=== PATIENT | male | born 1960 | race Caucasian/White ===

== ENCOUNTER 2018-01-31 10:30 | Inpatient (IN) | payer SELFPAY ==
[2018-01-31 10:30] VITALS: BMI 29.0
[2018-01-31] MEDS ORDERED: Sodium Chloride 0.9% 1,000 ML IV ONE ×3 (10:46→13:43)
[2018-01-31 11:06] LABS: BASO # 0.1 K/uL (0.0-0.2); BASO % 1.7 % (0.0-2.0); EOS % 0.1 % (0.0-4.0); LYMPH # 0.6 K/uL (1.0-4.3); LYMPH % 7.3 % (20.0-40.0); MEAN CELL VOLUME 88.8 fL (80.0-94.0); MEAN CORPUSCULAR HEMOGLOBIN 33.1 pg (27.0-31.0); MEAN CORPUSCULAR HGB CONC 37.3 g/dL (33.0-37.0); MEAN PLATELET VOLUME 7.1 fL (7.2-11.7); MONO # 0.9 K/uL (0.0-0.8); MONO % 10.8 % (0.0-10.0); NEUT # 6.6 K/uL (1.8-7.0); NEUT % 80.1 % (50.0-75.0); PLATELET COUNT 216 K/uL (130-400); RBC 4.22 Mil/uL (4.40-5.90); RED CELL DISTRIBUTION WIDTH 14.7 % (11.5-14.5); WHITE BLOOD COUNT 8.3 K/uL (4.8-10.8)
[2018-01-31 11:14] LABS: INR 1.3; PROTHROMBIN TIME 14.1 SECONDS (9.7-12.2)
[2018-01-31 11:18] LABS: VENOUS BLOOD GAS BASE EXCESS -7.4 mmol/L (0.0-2.0); VENOUS BLOOD GAS PCO2 58 mmHg (40-60); VENOUS BLOOD GAS PO2 51 mm/Hg (30-55); VENOUS BLOOD PH 7.18 (7.32-7.43)
[2018-01-31 11:20] LABS: URINE BILIRUBIN NEGATIVE (NEGATIVE); URINE BLOOD 1+ (NEGATIVE); URINE CLARITY Clear (Clear); URINE COLOR Yellow (YELLOW); URINE GLUCOSE (UA) 1+ mg/dL (Normal); URINE LEUKOCYTE ESTERASE NEG Leu/uL (Negative); URINE PROTEIN 1+ mg/dL (NEGATIVE)
[2018-01-31 11:28] LABS: BARBITURATES, UR NEGATIVE (NEGATIVE); BENZODIAZEPINES, UR NEGATIVE (NEGATIVE); OPIATES, UR NEGATIVE (NEGATIVE); PHENCYCLIDINE, UR NEGATIVE (NEGATIVE)
[2018-01-31 11:33] LABS: CK-MB 5.31 ng/mL (0.0-3.38)
[2018-01-31] MEDS ORDERED: Sodium Chloride 0.9% 500 ML IV ONE (11:37)
[2018-01-31 11:38] LABS: ALB/GLOB RATIO 1.7 (1.0-2.1); ALBUMIN 4.6 g/dL (3.5-5.0); ALT/SGPT 75 U/L (21-72); AST/SGOT 94 U/L (17-59); BLOOD UREA NITROGEN 16 mg/dL (9-20); CALCIUM 8.5 mg/dl (8.6-10.4); GFR AFRICAN-AMERICAN > 60; GFR NON-AFRICAN AMERICAN > 60
[2018-01-31] MEDS ORDERED: Sodium Chloride 0.9% 1,000 ML ONE (11:40)
[2018-01-31] MEDS ORDERED: Potassium Chloride 20 mEq 100 ML ONE (11:46)
--- NOTE | 2018-01-31 11:48 | C.PDOC ---
History Of Present Illness Patient LOBO from work, was found by a coworker on the floor of their job appearing altered/confused. Patient asking for water, but otherwise is confused and unable to provide much information. Time Seen by Provider: 01/31/18 10:45 Chief Complaint (Nursing): Altered Mental Status History Per: EMS History/Exam Limitations: Clinical Condition Onset Of Symptoms: Other ([employer]) Past Medical History Reviewed: Historical Data, Nursing Documentation, Vital Signs Vital Signs: Last Vital Signs Temp 98.0 F 02/03/18 16:00 Pulse 71 02/03/18 12:00 Resp 17 02/03/18 12:00 BP 145/95 H 02/03/18 12:00 Pulse Ox 99 02/04/18 12:46 - Medical History PMH: HTN Family History: States: Unknown Family Hx - Social History Hx Alcohol Use: Yes Hx Substance Use: No Review Of Systems Review Of Systems: ROS cannot be obtained secondary to pt's inabilty to answer questions. Physical Exam - Physical Exam Appears: Non-toxic, Confused Skin: Normal Color, Warm, Dry Head: Atraumatic, Normacephalic Eye(s): bilateral: Normal Inspection Cardiovascular: Rhythm Regular Respiratory: Normal Breath Sounds, No Rales, No Rhonchi, No Wheezing Gastrointestinal/Abdominal: Normal Exam, Bowel Sounds, Soft, No Tenderness Neurological/Psych: No Oriented x3 (awake, alert but confused ), No Normal Cognition, Normal Cranial Nerves, No Cerebellar Signs, Normal Motor, Normal Sensation ED Course And Treatment - Laboratory Results Result Diagrams: 02/03/18 06:24 02/03/18 06:14 ECG: Interpreted By Me, Viewed By Me (sinus rhythm 94 bpm, first degree AV block , PVCs, left axis deviation, T wave inversions III, aVF, no acute ST changes) ECG Interpretation: Abnormal O2 Sat by Pulse Oximetry: 99 (RA) Pulse Ox Interpretation: Normal - Radiology CXR: Interpreted by Me, Viewed By Me CXR Interpretation: Yes: No Acute Disease, Other (no effusions). No: Infiltrates - CT Scan/US CT HEAD Other Rad Studies (CT/US): Read By Radiologist, Radiology Report Reviewed CT/US Interpretation: Accession No. : [id number]. Patient Name / ID : KASSIE GURROLA / [id number]. Exam Date : 01/31/2018 11:31:47 ( Approved ). Study Comment : Sex / Age : M / 57Y. Creator : Randall Forbes MD. Dictator : Randall Forbes MD. Legal Billing Analyst : [employer] Maker : Randall Forbes MD. Approver2 : Report Date : 01/31/2018 11:52:47. My Comment : . PROCEDURE: CT HEAD WITHOUT CONTRAST. HISTORY: ams. COMPARISON: None available. TECHNIQUE: Axial computed tomography images were obtained through the head/brain without intravenous contrast. Radiation dose: Total exam DLP = 991.53 mGy-cm. This CT exam was performed using one or more of the following dose reduction techniques: Automated exposure control, adjustment of the mA and/ or kV according to patient size, and/or use of iterative reconstruction technique. FINDINGS: HEMORRHAGE: No intracranial hemorrhage. BRAIN: No mass effect or edema. Mild diffuse atrophy. No chronic white matter ischemic change. No evidence of acute infarct. VENTRICLES: Unremarkable. No hydrocephalus. CALVARIUM: Unremarkable. PARANASAL SINUSES: Unremarkable as visualized. No significant inflammatory changes. MASTOID AIR CELLS: Unremarkable as visualized. No inflammatory changes. OTHER FINDINGS: None. IMPRESSION: Mild diffuse atrophy. No evidence of intracranial mass, hemorrhage or acute infarct. Progress Note: Blood work, UA, UDS, CXR, EKG, CT head ordered and reviewed. Discussed patient with Dr. Elliott berumen (director of automation), recommends repeat CMP in 1hr after arrival to reassess NA level. Recommends again giving hypertonic saline at this time . 11:30am- Patient evaluated by Dr. Berumen - Repeat CMP ordered. icu VS tele admission dependent on results of repeat CMP. 1:20pm- Discussed patient with Dr. Leon Berumen, agrees with admission to his service, likely will be ICU. Requests stat consult with nephrology Dr. Pérez. 1:30pm- Discussed patient with service consultant nephrology Dr. Shetty, recommends 3% saline 100ml IV bolus now. CMP repeat pending. 1:38pm - Repeat Na is 112- Spoke with director of automation, recommends against hypertonic saline at this time, would like normal saline only. IV NS increased to 100ml per hour. Will admit to ICU for symptomatic hyponatremia. Dr Pérez notified and will discuss with director of automation. - Physician Consult Information Outcome Of Conversation: Patient admitted to ICU under hospitalist service for symptomatic hyponatremia, AMS, hypokalemia. Critical Care Time - Critical Care Note Total Time (in mins): 60 Documented critical care: time excludes all time spent performing seperately billable procedures. Disposition - Disposition Disposition: HOSPITALIZED Disposition Time: 13:37 Condition: GUARDED - Clinical Impression Clinical Impression: Acute hyponatremia, Altered mental status, Hypokalemia Decision To Admit - Pt Status Changed To: Hospital Disposition Of: Inpatient - Admit Certification Admit to Inpatient:: After my assessment, the patient will require hospitalization for at least two midnights. This is because of the severity of symptoms shown, intensity of services needed, and/or the medical risk in this patient being treated as an outpatient. - InPatient: Physician Admission Certification:: see notes - . Bed Request Type: ICU Admitting Physician: Darrell Berumen Patient Diagnosis: Acute hyponatremia, Altered mental status, Hypokalemia
--- NOTE | 2018-01-31 11:54 | CT ---
PROCEDURE: CT HEAD WITHOUT CONTRAST. HISTORY: ams COMPARISON: None available. TECHNIQUE: Axial computed tomography images were obtained through the head/brain without intravenous contrast. Radiation dose: Total exam DLP = 991.53 mGy-cm. This CT exam was performed using one or more of the following dose reduction techniques: Automated exposure control, adjustment of the mA and/or kV according to patient size, and/or use of iterative reconstruction technique. FINDINGS: HEMORRHAGE: No intracranial hemorrhage. BRAIN: No mass effect or edema. Mild diffuse atrophy. No chronic white matter ischemic change. No evidence of acute infarct. VENTRICLES: Unremarkable. No hydrocephalus. CALVARIUM: Unremarkable. PARANASAL SINUSES: Unremarkable as visualized. No significant inflammatory changes. MASTOID AIR CELLS: Unremarkable as visualized. No inflammatory changes. OTHER FINDINGS: None. IMPRESSION: Mild diffuse atrophy. No evidence of intracranial mass, hemorrhage or acute infarct.
[2018-01-31 12:04] LABS: LYMPHOCYTE 4 % (20-40); MONOCYTE 6 % (0-10); NEUTROPHIL 90 % (50-75); PLATELET ESTIMATE NORMAL (NORMAL); TOTAL CELLS COUNTED 100
[2018-01-31 12:14] LABS: B-TYPE NATRIURETIC PEPTIDE 176 pg/mL (0-900)
[2018-01-31] MEDS ORDERED: Labetalol 25mg/5ml Syringe IVP STA (12:33)
--- NOTE | 2018-01-31 13:35 | RAD ---
PROCEDURE: CHEST RADIOGRAPH, 1 VIEW HISTORY: SOB COMPARISON: None available. FINDINGS: LUNGS: Clear. PLEURA: No pneumothorax or pleural fluid seen. CARDIOVASCULAR: Normal. OSSEOUS STRUCTURES: No significant abnormalities. VISUALIZED UPPER ABDOMEN: Normal. OTHER FINDINGS: None. IMPRESSION: No active disease.
[2018-01-31 13:40] LABS: ALB/GLOB RATIO 1.6 (1.0-2.1); ALBUMIN 4.5 g/dL (3.5-5.0); ALT/SGPT 72 U/L (21-72); AST/SGOT 78 U/L (17-59); BLOOD UREA NITROGEN 15 mg/dL (9-20); CALCIUM 8.7 mg/dl (8.6-10.4); GFR AFRICAN-AMERICAN > 60; GFR NON-AFRICAN AMERICAN > 60
[2018-01-31] MEDS ORDERED: Labetalol 25mg/5ml Syringe ONE (13:40)
--- NOTE | 2018-01-31 16:11 | CP.PCM.HP ---
<Isac Adams - Last Filed: 01/31/18 18:09> History of Present Illness - History of Present Illness History of Present Illness: 57 year old male with past medical history of hypertension, and diabetes was brought in by ambulance because he was found confused at work. Patient is and confused at the time of interview. Patient states woke up this morning feeling fine and went on about his day until he got to where he started feeling "uncomfortable" prior loss of consciousness. He insisted that does not do drugs and someone must have poisoned him. Currently he complains of being thirsty and urge to urinate. He denies prior history of the same. He denies taking any medications this morning and his last alcohol intake was last night. He had 5 cans of beers. Patient further denies having fever, chills, headache, blurred vision, shortness of breath, chest pain, nausea, vomiting, diarrhea, or abdominal pain. Patient became agitated when asked about his family, relatives, or currently living situation. PMD: Dr. Bhatt, last seen ?months when he lost his insurance PMHx: HTN, DM2, dyslipidemia PSHx: Lipoma excision x3 Allergy: NKDA social history: drinks 5-10 cans of beer every weekend, denies tobacco use. History of cocaine use, last use was 20years ago. Works as a manager report. Lives alone "at work" Family Hx: adopted, unknown Home meds: cozaar 100mg, atenolol 100mg, glipezide 10mg, HCTZ 25mg, amlodipine 10mg, gemfibrozil 600mg [facility]acy: [facility] Present on Admission - Present on Admission Any Indicators Present on Admission: No Review of Systems - Review of Systems Systems not reviewed;Unavailable: Altered Mental Status All systems: reviewed and no additional remarkable complaints except - Constitutional Constitutional: As Per HPI. absent: Chills, Excessive Sweating, Fever, Headache - EENT Eyes: As Per HPI. absent: Blind Spots, Blurred Vision, Change in Vision Ears: As Per HPI. absent: Disequilibrium, Dizziness Nose/Mouth/Throat: As Per HPI. absent: Epistaxis, Nasal Trauma, Nose Pain - Cardiovascular Cardiovascular: As Per HPI. absent: Chest Pain, Dyspnea, Edema, Leg Edema, Syncope - Respiratory Respiratory: As Per HPI. absent: Cough, Dyspnea - Gastrointestinal Gastrointestinal: As Per HPI. absent: Abdominal Pain, Bloating, Diarrhea, Nausea, Vomiting - Genitourinary Genitourinary: As Per HPI. absent: Dysuria, Flank Pain, Hematuria - Reproductive: Male Reproductive:Male: As Per HPI - Musculoskeletal Musculoskeletal: As Per HPI. absent: Deformity, Joint Swelling, Tingling - Integumentary Integumentary: As Per HPI. absent: Alopecia, Change in Hair, Change in Pigmentation - Neurological Neurological: As Per HPI. absent: Dizziness, Numbness, Headaches, Tremor, Weakness - Psychiatric Psychiatric: As Per HPI, Confusion. absent: Auditory Hallucinations, Depression - Endocrine Endocrine: As Per HPI, Polyuria. absent: Change in Body Appearance, Cold Intolorance, Heat Intolorance, Palpitations Additional Comments: Thirsty - Hematologic/Lymphatic Hematologic: As Per HPI. absent: Easy Bleeding Past Patient History - Infectious Disease Hx of Infectious Diseases: None - Past Social History Smoking Status: Never Smoked - CARDIAC Hx Hypertension: Yes - PULMONARY Hx Respiratory Disorders: No - NEUROLOGICAL Hx Neurological Disorder: No - HEENT Hx HEENT Problems: No - RENAL Hx Chronic Kidney Disease: No - ENDOCRINE/METABOLIC Hx Endocrine Disorders: No - HEMATOLOGICAL/ONCOLOGICAL Hx Blood Disorders: No - INTEGUMENTARY Hx Dermatological Problems: No - MUSCULOSKELETAL/RHEUMATOLOGICAL Hx Gout: Yes - GASTROINTESTINAL Hx Gastrointestinal Disorders: No - GENITOURINARY/GYNECOLOGICAL Hx Genitourinary Disorders: No - PSYCHIATRIC Hx Substance Use: No - SURGICAL HISTORY Hx Surgeries: No - ANESTHESIA Hx Anesthesia: No Meds Allergies/Adverse Reactions: Allergies Allergy/AdvReac Type Severity Reaction Status Date / Time No Known Allergies Allergy Verified 10/31/17 16:45 Physical Exam - Constitutional Appears: Non-toxic, No Acute Distress, Confused - Head Exam Head Exam: ATRAUMATIC, NORMOCEPHALIC - Eye Exam Eye Exam: EOMI, Normal appearance Pupil Exam: NORMAL ACCOMODATION - ENT Exam ENT Exam: Mucous Membranes Moist - Neck Exam Neck exam: Positive for: Normal Inspection. Negative for: Tenderness, Thyromegaly - Respiratory Exam Respiratory Exam: Clear to Auscultation Bilateral, NORMAL BREATHING PATTERN. absent: Wheezes, Respiratory Distress - Cardiovascular Exam Cardiovascular Exam: REGULAR RHYTHM, +S1, +S2. absent: Diastolic murmur, Systolic Murmur - GI/Abdominal Exam GI & Abdominal Exam: Normal Bowel Sounds, Soft. absent: Tenderness - Extremities Exam Extremities exam: Positive for: normal capillary refill, normal inspection, pedal pulses present. Negative for: joint swelling, pedal edema, tenderness - Back Exam Back exam: absent: CVA tenderness (L), CVA tenderness (R) Additional comments: lipoma excision scars right upper back, bilateral lower back - Neurological Exam Neurological exam: Alert, Altered, CN II-XII Intact, Motor Sensory Deficit Additional comments: 1+ bilateral knee jerk reflex - Psychiatric Exam Psychiatric exam: Normal Affect, Normal Mood - Skin Skin Exam: Dry, Normal Color, Warm Results - Vital Signs Recent Vital Signs: Last Vital Signs Temp 98.2 F 01/31/18 14:09 Pulse 82 01/31/18 15:00 Resp 15 01/31/18 15:00 BP 168/98 H 01/31/18 14:52 Pulse Ox 100 01/31/18 15:00 - Labs Result Diagrams: 01/31/18 10:54 01/31/18 13:01 Labs: Laboratory Results - last 24 hr 01/31/18 01/31/18 01/31/18 10:37 10:54 10:54 WBC 8.3 RBC 4.22 L Hgb 14.0 Hct 37.5 MCV 88.8 MCH 33.1 H MCHC 37.3 H RDW 14.7 H Plt Count 216 MPV 7.1 L Neut % (Auto) 80.1 H Lymph % (Auto) 7.3 L [place] % (Auto) 10.8 H Eos % (Auto) 0.1 Baso % (Auto) 1.7 Neut # (Auto) 6.6 Lymph # (Auto) 0.6 L [place] # (Auto) 0.9 H Eos # (Auto) 0.0 Baso # (Auto) 0.1 Neutrophils % (Manual) 90 H Lymphocytes % (Manual) 4 L Monocytes % (Manual) 6 Platelet Estimate Normal RBC Morphology Normal PT 14.1 H INR 1.3 APTT 29 pO2 VBG pH VBG pCO2 VBG HCO3 VBG Total CO2 VBG O2 Sat (Calc) VBG Base Excess VBG Potassium Glucose Lactate Crit Value Called To Crit Value Called By Crit Value Read Back Blood Gas Notified Time Sodium Potassium Chloride Carbon Dioxide Anion Gap BUN Creatinine Est GFR ( Amer) Est GFR (Non-Af Amer) POC Glucose (mg/dL) 212 H Random Glucose Calcium Total Bilirubin AST ALT Alkaline Phosphatase Ammonia Total Creatine Kinase CK-MB (Mass) Troponin I NT-Pro-B Natriuret Pep Total Protein Albumin Globulin Albumin/Globulin Ratio TSH 3rd Generation Venous Blood Potassium Urine Color Urine Clarity Urine pH Ur Specific [place] Urine Protein Urine Glucose (UA) Urine Ketones Urine Blood Urine Nitrate Urine Bilirubin Urine Urobilinogen Ur Leukocyte Esterase Urine WBC (Auto) Urine Osmolality Ur Random Sodium Ur Random Potassium Salicylates Urine Opiates Screen Urine Methadone Screen Acetaminophen Ur Barbiturates Screen Ur Phencyclidine Scrn Ur Amphetamines Screen U Benzodiazepines Scrn U Oth Cocaine Metabols U Cannabinoids Screen Alcohol, Quantitative 01/31/18 01/31/18 01/31/18 10:54 11:01 11:01 WBC RBC Hgb Hct MCV MCH MCHC RDW Plt Count MPV Neut % (Auto) Lymph % (Auto) [place] % (Auto) Eos % (Auto) Baso % (Auto) Neut # (Auto) Lymph # (Auto) [place] # (Auto) Eos # (Auto) Baso # (Auto) Neutrophils % (Manual) Lymphocytes % (Manual) Monocytes % (Manual) Platelet Estimate RBC Morphology PT INR APTT pO2 VBG pH VBG pCO2 VBG HCO3 VBG Total CO2 VBG O2 Sat (Calc) VBG Base Excess VBG Potassium Glucose Lactate Crit Value Called To Crit Value Called By Crit Value Read Back Blood Gas Notified Time Sodium 111 L* Potassium 2.9 L Chloride 74 L Carbon Dioxide 24 Anion Gap 18 BUN 16 Creatinine 1.1 Est GFR ( Amer) > 60 Est GFR (Non-Af Amer) > 60 POC Glucose (mg/dL) Random Glucose 176 H Calcium 8.5 L Total Bilirubin 1.7 H AST 94 H ALT 75 H Alkaline Phosphatase 49 Ammonia Total Creatine Kinase 822 H CK-MB (Mass) 5.31 H Troponin I < 0.0120 NT-Pro-B Natriuret Pep 176 Total Protein 7.3 Albumin 4.6 Globulin 2.7 Albumin/Globulin Ratio 1.7 TSH 3rd Generation 0.17 L Venous Blood Potassium Urine Color Yellow Urine Clarity Clear Urine pH 6.0 Ur Specific [place] 1.008 Urine Protein 1+ H Urine Glucose (UA) 1+ H Urine Ketones Trace Urine Blood 1+ H Urine Nitrate Negative Urine Bilirubin Negative Urine Urobilinogen 2.0 Ur Leukocyte Esterase Neg Urine WBC (Auto) 1 Urine Osmolality Ur Random Sodium Ur Random Potassium Salicylates Urine Opiates Screen Negative Urine Methadone Screen Negative Acetaminophen Ur Barbiturates Screen Negative Ur Phencyclidine Scrn Negative Ur Amphetamines Screen Negative U Benzodiazepines Scrn Negative U Oth Cocaine Metabols Negative U Cannabinoids Screen Negative Alcohol, Quantitative < 10 01/31/18 01/31/18 01/31/18 11:11 11:30 11:30 WBC RBC Hgb Hct MCV MCH MCHC RDW Plt Count MPV Neut % (Auto) Lymph % (Auto) [place] % (Auto) Eos % (Auto) Baso % (Auto) Neut # (Auto) Lymph # (Auto) [place] # (Auto) Eos # (Auto) Baso # (Auto) Neutrophils % (Manual) Lymphocytes % (Manual) Monocytes % (Manual) Platelet Estimate RBC Morphology PT INR APTT pO2 51 VBG pH 7.18 L* VBG pCO2 58 VBG HCO3 18.5 VBG Total CO2 23.4 VBG O2 Sat (Calc) 82.8 H VBG Base Excess -7.4 L VBG Potassium > 20.0 H* Glucose 187 H Lactate 2.4 H Crit Value Called To Dr pepe Crit Value Called By Jose stone sales and merchandising representative Crit Value Read Back Y Blood Gas Notified Time 1117 Sodium 106.0 L* Potassium Chloride 74.0 L Carbon Dioxide Anion Gap BUN Creatinine Est GFR ( Amer) Est GFR (Non-Af Amer) POC Glucose (mg/dL) Random Glucose Calcium Total Bilirubin AST ALT Alkaline Phosphatase Ammonia Total Creatine Kinase CK-MB (Mass) Troponin I NT-Pro-B Natriuret Pep Total Protein Albumin Globulin Albumin/Globulin Ratio TSH 3rd Generation Venous Blood Potassium > 20.0 H* Urine Color Urine Clarity Urine pH Ur Specific [place] Urine Protein Urine Glucose (UA) Urine Ketones Urine Blood Urine Nitrate Urine Bilirubin Urine Urobilinogen Ur Leukocyte Esterase Urine WBC (Auto) Urine Osmolality Ur Random Sodium Ur Random Potassium Salicylates < 1.0 Urine Opiates Screen Urine Methadone Screen Acetaminophen < 10.0 L Ur Barbiturates Screen Ur Phencyclidine Scrn Ur Amphetamines Screen U Benzodiazepines Scrn U Oth Cocaine Metabols U Cannabinoids Screen Alcohol, Quantitative 01/31/18 01/31/18 01/31/18 11:43 13:01 13:01 WBC RBC Hgb Hct MCV MCH MCHC RDW Plt Count MPV Neut % (Auto) Lymph % (Auto) [place] % (Auto) Eos % (Auto) Baso % (Auto) Neut # (Auto) Lymph # (Auto) [place] # (Auto) Eos # (Auto) Baso # (Auto) Neutrophils % (Manual) Lymphocytes % (Manual) Monocytes % (Manual) Platelet Estimate RBC Morphology PT INR APTT pO2 VBG pH VBG pCO2 VBG HCO3 VBG Total CO2 VBG O2 Sat (Calc) VBG Base Excess VBG Potassium Glucose Lactate Crit Value Called To Crit Value Called By Crit Value Read Back Blood Gas Notified Time Sodium 112 L* Potassium 3.3 L Chloride 74 L Carbon Dioxide 28 Anion Gap 13 BUN 15 Creatinine 1.1 Est GFR ( Amer) > 60 Est GFR (Non-Af Amer) > 60 POC Glucose (mg/dL) Random Glucose 174 H Calcium 8.7 Total Bilirubin 1.6 H AST 78 H ALT 72 Alkaline Phosphatase 58 Ammonia < 9 L Total Creatine Kinase CK-MB (Mass) Troponin I NT-Pro-B Natriuret Pep Total Protein 7.4 Albumin 4.5 Globulin 2.9 Albumin/Globulin Ratio 1.6 TSH 3rd Generation Venous Blood Potassium Urine Color Urine Clarity Urine pH Ur Specific [place] Urine Protein Urine Glucose (UA) Urine Ketones Urine Blood Urine Nitrate Urine Bilirubin Urine Urobilinogen Ur Leukocyte Esterase Urine WBC (Auto) Urine Osmolality 282 L Ur Random Sodium 46 Ur Random Potassium 21.2 Salicylates Urine Opiates Screen Urine Methadone Screen Acetaminophen Ur Barbiturates Screen Ur Phencyclidine Scrn Ur Amphetamines Screen U Benzodiazepines Scrn U Oth Cocaine Metabols U Cannabinoids Screen Alcohol, Quantitative Assessment & Plan - Assessment and Plan (Free Text) Assessment: Hyponatremia -Na 111 upon ED arrival, 112 on repeat -possible secondary to HCTZ -Likely also the cause of AMS, CT Head showed mild atrophy -Calculated serum osmo 239.4 -Follow up TSH, free T4 -Lipid panel -Cortisol level at 7am -Urine sodium, urine osmo -Follow up BMP to see if 3% NS needs to be started -Nephrology consulted, Dr. Shetty help appreciated -Seizure precaution Hypokalemia -K 2.9 on arrival, 3.3 on repeat -Follow up BM Hypochloremia -Cl 74 -Patient is given NS Elevated T. Bili -T bili 1.7 -Follow up am CMP Low TSH -TSH 0.17 -Follow up TSH, T4 H/o HTN -Atenolol 100mg PO HS -Cozaar 100mg AM -Hold HCTZ H/o DM2 -follow up Hgb, TSH, T4, lipid panel -Glipizide 10mg po -RISS moderate ACHS -Hypoglycemic protocol Prophylactic measures -VT Risk score assessment 1 -Bilateral SCD Further management per ICU team <Darrell Barber - Last Filed: 01/31/18 20:02> Results - Vital Signs Recent Vital Signs: Last Vital Signs Temp 98.6 F 01/31/18 16:00 Pulse 77 01/31/18 19:18 Resp 13 01/31/18 19:18 BP 137/87 01/31/18 19:18 Pulse Ox 99 01/31/18 16:00 - Labs Result Diagrams: 01/31/18 10:54 01/31/18 17:51 Labs: Laboratory Results - last 24 hr 01/31/18 01/31/18 01/31/18 10:37 10:54 10:54 WBC 8.3 RBC 4.22 L Hgb 14.0 Hct 37.5 MCV 88.8 MCH 33.1 H MCHC 37.3 H RDW 14.7 H Plt Count 216 MPV 7.1 L Neut % (Auto) 80.1 H Lymph % (Auto) 7.3 L [place] % (Auto) 10.8 H Eos % (Auto) 0.1 Baso % (Auto) 1.7 Neut # (Auto) 6.6 Lymph # (Auto) 0.6 L [place] # (Auto) 0.9 H Eos # (Auto) 0.0 Baso # (Auto) 0.1 Neutrophils % (Manual) 90 H Lymphocytes % (Manual) 4 L Monocytes % (Manual) 6 Platelet Estimate Normal RBC Morphology Normal PT 14.1 H INR 1.3 APTT 29 pO2 VBG pH VBG pCO2 VBG HCO3 VBG Total CO2 VBG O2 Sat (Calc) VBG Base Excess VBG Potassium Glucose Lactate Crit Value Called To Crit Value Called By Crit Value Read Back Blood Gas Notified Time Sodium Potassium Chloride Carbon Dioxide Anion Gap BUN Creatinine Est GFR ( Amer) Est GFR (Non-Af Amer) POC Glucose (mg/dL) 212 H Random Glucose Calcium Phosphorus Magnesium Total Bilirubin AST ALT Alkaline Phosphatase Ammonia Total Creatine Kinase CK-MB (Mass) Troponin I NT-Pro-B Natriuret Pep Total Protein Albumin Globulin Albumin/Globulin Ratio Free T4 TSH 3rd Generation Venous Blood Potassium Urine Color Urine Clarity Urine pH Ur Specific [place] Urine Protein Urine Glucose (UA) Urine Ketones Urine Blood Urine Nitrate Urine Bilirubin Urine Urobilinogen Ur Leukocyte Esterase Urine WBC (Auto) Urine Osmolality Ur Random Sodium Ur Random Potassium Salicylates Urine Opiates Screen Urine Methadone Screen Acetaminophen Ur Barbiturates Screen Ur Phencyclidine Scrn Ur Amphetamines Screen U Benzodiazepines Scrn U Oth Cocaine Metabols U Cannabinoids Screen Alcohol, Quantitative 01/31/18 01/31/18 01/31/18 10:54 11:01 11:01 WBC RBC Hgb Hct MCV MCH MCHC RDW Plt Count MPV Neut % (Auto) Lymph % (Auto) [place] % (Auto) Eos % (Auto) Baso % (Auto) Neut # (Auto) Lymph # (Auto) [place] # (Auto) Eos # (Auto) Baso # (Auto) Neutrophils % (Manual) Lymphocytes % (Manual) Monocytes % (Manual) Platelet Estimate RBC Morphology PT INR APTT pO2 VBG pH VBG pCO2 VBG HCO3 VBG Total CO2 VBG O2 Sat (Calc) VBG Base Excess VBG Potassium Glucose Lactate Crit Value Called To Crit Value Called By Crit Value Read Back Blood Gas Notified Time Sodium 111 L* Potassium 2.9 L Chloride 74 L Carbon Dioxide 24 Anion Gap 18 BUN 16 Creatinine 1.1 Est GFR ( Amer) > 60 Est GFR (Non-Af Amer) > 60 POC Glucose (mg/dL) Random Glucose 176 H Calcium 8.5 L Phosphorus Magnesium Total Bilirubin 1.7 H AST 94 H ALT 75 H Alkaline Phosphatase 49 Ammonia Total Creatine Kinase 822 H CK-MB (Mass) 5.31 H Troponin I < 0.0120 NT-Pro-B Natriuret Pep 176 Total Protein 7.3 Albumin 4.6 Globulin 2.7 Albumin/Globulin Ratio 1.7 Free T4 TSH 3rd Generation 0.17 L Venous Blood Potassium Urine Color Yellow Urine Clarity Clear Urine pH 6.0 Ur Specific [place] 1.008 Urine Protein 1+ H Urine Glucose (UA) 1+ H Urine Ketones Trace Urine Blood 1+ H Urine Nitrate Negative Urine Bilirubin Negative Urine Urobilinogen 2.0 Ur Leukocyte Esterase Neg Urine WBC (Auto) 1 Urine Osmolality Ur Random Sodium Ur Random Potassium Salicylates Urine Opiates Screen Negative Urine Methadone Screen Negative Acetaminophen Ur Barbiturates Screen Negative Ur Phencyclidine Scrn Negative Ur Amphetamines Screen Negative U Benzodiazepines Scrn Negative U Oth Cocaine Metabols Negative U Cannabinoids Screen Negative Alcohol, Quantitative < 10 01/31/18 01/31/18 01/31/18 11:11 11:30 11:30 WBC RBC Hgb Hct MCV MCH MCHC RDW Plt Count MPV Neut % (Auto) Lymph % (Auto) [place] % (Auto) Eos % (Auto) Baso % (Auto) Neut # (Auto) Lymph # (Auto) [place] # (Auto) Eos # (Auto) Baso # (Auto) Neutrophils % (Manual) Lymphocytes % (Manual) Monocytes % (Manual) Platelet Estimate RBC Morphology PT INR APTT pO2 51 VBG pH 7.18 L* VBG pCO2 58 VBG HCO3 18.5 VBG Total CO2 23.4 VBG O2 Sat (Calc) 82.8 H VBG Base Excess -7.4 L VBG Potassium > 20.0 H* Glucose 187 H Lactate 2.4 H Crit Value Called To Dr pepe Crit Value Called By Jose stone sales and merchandising representative Crit Value Read Back Y Blood Gas Notified Time 1117 Sodium 106.0 L* Potassium Chloride 74.0 L Carbon Dioxide Anion Gap BUN Creatinine Est GFR ( Amer) Est GFR (Non-Af Amer) POC Glucose (mg/dL) Random Glucose Calcium Phosphorus Magnesium Total Bilirubin AST ALT Alkaline Phosphatase Ammonia Total Creatine Kinase CK-MB (Mass) Troponin I NT-Pro-B Natriuret Pep Total Protein Albumin Globulin Albumin/Globulin Ratio Free T4 TSH 3rd Generation Venous Blood Potassium > 20.0 H* Urine Color Urine Clarity Urine pH Ur Specific [place] Urine Protein Urine Glucose (UA) Urine Ketones Urine Blood Urine Nitrate Urine Bilirubin Urine Urobilinogen Ur Leukocyte Esterase Urine WBC (Auto) Urine Osmolality Ur Random Sodium Ur Random Potassium Salicylates < 1.0 Urine Opiates Screen Urine Methadone Screen Acetaminophen < 10.0 L Ur Barbiturates Screen Ur Phencyclidine Scrn Ur Amphetamines Screen U Benzodiazepines Scrn U Oth Cocaine Metabols U Cannabinoids Screen Alcohol, Quantitative 01/31/18 01/31/18 01/31/18 11:43 13:01 13:01 WBC RBC Hgb Hct MCV MCH MCHC RDW Plt Count MPV Neut % (Auto) Lymph % (Auto) [place] % (Auto) Eos % (Auto) Baso % (Auto) Neut # (Auto) Lymph # (Auto) [place] # (Auto) Eos # (Auto) Baso # (Auto) Neutrophils % (Manual) Lymphocytes % (Manual) Monocytes % (Manual) Platelet Estimate RBC Morphology PT INR APTT pO2 VBG pH VBG pCO2 VBG HCO3 VBG Total CO2 VBG O2 Sat (Calc) VBG Base Excess VBG Potassium Glucose Lactate Crit Value Called To Crit Value Called By Crit Value Read Back Blood Gas Notified Time Sodium 112 L* Potassium 3.3 L Chloride 74 L Carbon Dioxide 28 Anion Gap 13 BUN 15 Creatinine 1.1 Est GFR ( Amer) > 60 Est GFR (Non-Af Amer) > 60 POC Glucose (mg/dL) Random Glucose 174 H Calcium 8.7 Phosphorus Magnesium Total Bilirubin 1.6 H AST 78 H ALT 72 Alkaline Phosphatase 58 Ammonia < 9 L Total Creatine Kinase CK-MB (Mass) Troponin I NT-Pro-B Natriuret Pep Total Protein 7.4 Albumin 4.5 Globulin 2.9 Albumin/Globulin Ratio 1.6 Free T4 TSH 3rd Generation Venous Blood Potassium Urine Color Urine Clarity Urine pH Ur Specific [place] Urine Protein Urine Glucose (UA) Urine Ketones Urine Blood Urine Nitrate Urine Bilirubin Urine Urobilinogen Ur Leukocyte Esterase Urine WBC (Auto) Urine Osmolality 282 L Ur Random Sodium 46 Ur Random Potassium 21.2 Salicylates Urine Opiates Screen Urine Methadone Screen Acetaminophen Ur Barbiturates Screen Ur Phencyclidine Scrn Ur Amphetamines Screen U Benzodiazepines Scrn U Oth Cocaine Metabols U Cannabinoids Screen Alcohol, Quantitative 01/31/18 01/31/18 01/31/18 17:50 17:51 17:51 WBC RBC Hgb Hct MCV MCH MCHC RDW Plt Count MPV Neut % (Auto) Lymph % (Auto) [place] % (Auto) Eos % (Auto) Baso % (Auto) Neut # (Auto) Lymph # (Auto) [place] # (Auto) Eos # (Auto) Baso # (Auto) Neutrophils % (Manual) Lymphocytes % (Manual) Monocytes % (Manual) Platelet Estimate RBC Morphology PT INR APTT pO2 VBG pH VBG pCO2 VBG HCO3 VBG Total CO2 VBG O2 Sat (Calc) VBG Base Excess VBG Potassium Glucose Lactate Crit Value Called To Crit Value Called By Crit Value Read Back Blood Gas Notified Time Sodium 118 L* Potassium 3.5 L Chloride 81 L Carbon Dioxide 25 Anion Gap 16 BUN 13 Creatinine 1.0 Est GFR ( Amer) > 60 Est GFR (Non-Af Amer) > 60 POC Glucose (mg/dL) 130 H Random Glucose 105 Calcium 8.2 L Phosphorus 4.3 Magnesium 2.2 Total Bilirubin 2.0 H AST 83 H ALT 60 Alkaline Phosphatase 41 Ammonia Total Creatine Kinase CK-MB (Mass) Troponin I NT-Pro-B Natriuret Pep Total Protein 7.3 Albumin 4.3 Globulin 3.0 Albumin/Globulin Ratio 1.5 Free T4 1.30 TSH 3rd Generation 0.31 L Venous Blood Potassium Urine Color Urine Clarity Urine pH Ur Specific [place] Urine Protein Urine Glucose (UA) Urine Ketones Urine Blood Urine Nitrate Urine Bilirubin Urine Urobilinogen Ur Leukocyte Esterase Urine WBC (Auto) Urine Osmolality Ur Random Sodium Ur Random Potassium Salicylates Urine Opiates Screen Urine Methadone Screen Acetaminophen Ur Barbiturates Screen Ur Phencyclidine Scrn Ur Amphetamines Screen U Benzodiazepines Scrn U Oth Cocaine Metabols U Cannabinoids Screen Alcohol, Quantitative 01/31/18 17:51 WBC RBC Hgb Hct MCV MCH MCHC RDW Plt Count MPV Neut % (Auto) Lymph % (Auto) [place] % (Auto) Eos % (Auto) Baso % (Auto) Neut # (Auto) Lymph # (Auto) [place] # (Auto) Eos # (Auto) Baso # (Auto) Neutrophils % (Manual) Lymphocytes % (Manual) Monocytes % (Manual) Platelet Estimate RBC Morphology PT INR APTT pO2 VBG pH VBG pCO2 VBG HCO3 VBG Total CO2 VBG O2 Sat (Calc) VBG Base Excess VBG Potassium Glucose Lactate Crit Value Called To Crit Value Called By Crit Value Read Back Blood Gas Notified Time Sodium Potassium Chloride Carbon Dioxide Anion Gap BUN Creatinine Est GFR ( Amer) Est GFR (Non-Af Amer) POC Glucose (mg/dL) Random Glucose Calcium Phosphorus Magnesium Total Bilirubin AST ALT Alkaline Phosphatase Ammonia Total Creatine Kinase CK-MB (Mass) Troponin I NT-Pro-B Natriuret Pep Total Protein Albumin Globulin Albumin/Globulin Ratio Free T4 TSH 3rd Generation Venous Blood Potassium Urine Color Urine Clarity Urine pH Ur Specific [place] Urine Protein Urine Glucose (UA) Urine Ketones Urine Blood Urine Nitrate Urine Bilirubin Urine Urobilinogen Ur Leukocyte Esterase Urine WBC (Auto) Urine Osmolality 160 L Ur Random Sodium 32 Ur Random Potassium Salicylates Urine Opiates Screen Urine Methadone Screen Acetaminophen Ur Barbiturates Screen Ur Phencyclidine Scrn Ur Amphetamines Screen U Benzodiazepines Scrn U Oth Cocaine Metabols U Cannabinoids Screen Alcohol, Quantitative Attending/Attestation - Attestation I have personally seen and examined this patient.: Yes I have fully participated in the care of the patient.: Yes I have reviewed all pertinent clinical information: Yes Notes (Text): 01/31/18 20:01 Patient was seen and examined shortly after his arrival in the ICU. History, Physical, Assessment and Plan were discussed with the resident. Darrell Barber D.O.
--- NOTE | 2018-01-31 16:57 | CP.PCM.CON ---
History of Present Illness - History of Present Illness History of Present Illness: 57 y/o male was found down on the floor. Patient noted he does not do drugs, cannot remember how he was found down on the floor. (+)LOC, denies any chest pain, denies any abdominal pain, denies any nausea or vomitting. Patient notes he takes atenelol, HCTz, losartan for BP and glipizide for diabetes. Review of Systems - Review of Systems Review of Systems: (+)LOC, all other systems negative Past Patient History - Infectious Disease Hx of Infectious Diseases: None - Past Medical History & Family History Past Medical History?: Yes - Past Social History Smoking Status: Never Smoked - CARDIAC Hx Hypertension: Yes - PULMONARY Hx Respiratory Disorders: No - NEUROLOGICAL Hx Neurological Disorder: No - HEENT Hx HEENT Problems: No - RENAL Hx Chronic Kidney Disease: No - ENDOCRINE/METABOLIC Hx Endocrine Disorders: No - HEMATOLOGICAL/ONCOLOGICAL Hx Blood Disorders: No - INTEGUMENTARY Hx Dermatological Problems: No - MUSCULOSKELETAL/RHEUMATOLOGICAL Hx Gout: Yes - GASTROINTESTINAL Hx Gastrointestinal Disorders: No - GENITOURINARY/GYNECOLOGICAL Hx Genitourinary Disorders: No - PSYCHIATRIC Hx Substance Use: No - SURGICAL HISTORY Hx Surgeries: No - ANESTHESIA Hx Anesthesia: No Meds Allergies/Adverse Reactions: Allergies Allergy/AdvReac Type Severity Reaction Status Date / Time No Known Allergies Allergy Verified 10/31/17 16:45 - Medications Medications: Current Medications Famotidine (Pepcid) 20 mg PO DAILY [facility] Heparin Sodium (Porcine) (Heparin) 5,000 units SC Q12 LINDY Physical Exam - Head Exam Head Exam: ATRAUMATIC, NORMAL INSPECTION, NORMOCEPHALIC - Eye Exam Eye Exam: EOMI Pupil Exam: NORMAL ACCOMODATION, PERRL - ENT Exam ENT Exam: Mucous Membranes Moist - Neck Exam Neck exam: Positive for: Normal Inspection - Respiratory Exam Respiratory Exam: Clear to Auscultation Bilateral, NORMAL BREATHING PATTERN - Cardiovascular Exam Cardiovascular Exam: +S1, +S2 - GI/Abdominal Exam GI & Abdominal Exam: Normal Bowel Sounds, Soft. absent: Tenderness - Extremities Exam Extremities exam: Positive for: normal inspection Results - Vital Signs Recent Vital Signs: Last Vital Signs Temp 98.2 F 01/31/18 14:09 Pulse 82 01/31/18 15:00 Resp 15 01/31/18 15:00 BP 168/98 H 01/31/18 14:52 Pulse Ox 100 06/16/18 15:00 - Labs Result Diagrams: 01/31/18 10:54 01/31/18 13:01 Labs: Laboratory Results - last 24 hr 01/31/18 01/31/18 01/31/18 10:37 10:54 10:54 WBC 8.3 RBC 4.22 L Hgb 14.0 Hct 37.5 MCV 88.8 MCH 33.1 H MCHC 37.3 H RDW 14.7 H Plt Count 216 MPV 7.1 L Neut % (Auto) 80.1 H Lymph % (Auto) 7.3 L [place] % (Auto) 10.8 H Eos % (Auto) 0.1 Baso % (Auto) 1.7 Neut # (Auto) 6.6 Lymph # (Auto) 0.6 L [place] # (Auto) 0.9 H Eos # (Auto) 0.0 Baso # (Auto) 0.1 Neutrophils % (Manual) 90 H Lymphocytes % (Manual) 4 L Monocytes % (Manual) 6 Platelet Estimate Normal RBC Morphology Normal PT 14.1 H INR 1.3 APTT 29 pO2 VBG pH VBG pCO2 VBG HCO3 VBG Total CO2 VBG O2 Sat (Calc) VBG Base Excess VBG Potassium Glucose Lactate Crit Value Called To Crit Value Called By Crit Value Read Back Blood Gas Notified Time Sodium Potassium Chloride Carbon Dioxide Anion Gap BUN Creatinine Est GFR ( Amer) Est GFR (Non-Af Amer) POC Glucose (mg/dL) 212 H Random Glucose Calcium Total Bilirubin AST ALT Alkaline Phosphatase Ammonia Total Creatine Kinase CK-MB (Mass) Troponin I NT-Pro-B Natriuret Pep Total Protein Albumin Globulin Albumin/Globulin Ratio TSH 3rd Generation Venous Blood Potassium Urine Color Urine Clarity Urine pH Ur Specific [place] Urine Protein Urine Glucose (UA) Urine Ketones Urine Blood Urine Nitrate Urine Bilirubin Urine Urobilinogen Ur Leukocyte Esterase Urine WBC (Auto) Urine Osmolality Ur Random Sodium Ur Random Potassium Salicylates Urine Opiates Screen Urine Methadone Screen Acetaminophen Ur Barbiturates Screen Ur Phencyclidine Scrn Ur Amphetamines Screen U Benzodiazepines Scrn U Oth Cocaine Metabols U Cannabinoids Screen Alcohol, Quantitative 01/31/18 01/31/18 01/31/18 10:54 11:01 11:01 WBC RBC Hgb Hct MCV MCH MCHC RDW Plt Count MPV Neut % (Auto) Lymph % (Auto) [place] % (Auto) Eos % (Auto) Baso % (Auto) Neut # (Auto) Lymph # (Auto) [place] # (Auto) Eos # (Auto) Baso # (Auto) Neutrophils % (Manual) Lymphocytes % (Manual) Monocytes % (Manual) Platelet Estimate RBC Morphology PT INR APTT pO2 VBG pH VBG pCO2 VBG HCO3 VBG Total CO2 VBG O2 Sat (Calc) VBG Base Excess VBG Potassium Glucose Lactate Crit Value Called To Crit Value Called By Crit Value Read Back Blood Gas Notified Time Sodium 111 L* Potassium 2.9 L Chloride 74 L Carbon Dioxide 24 Anion Gap 18 BUN 16 Creatinine 1.1 Est GFR ( Amer) > 60 Est GFR (Non-Af Amer) > 60 POC Glucose (mg/dL) Random Glucose 176 H Calcium 8.5 L Total Bilirubin 1.7 H AST 94 H ALT 75 H Alkaline Phosphatase 49 Ammonia Total Creatine Kinase 822 H CK-MB (Mass) 5.31 H Troponin I < 0.0120 NT-Pro-B Natriuret Pep 176 Total Protein 7.3 Albumin 4.6 Globulin 2.7 Albumin/Globulin Ratio 1.7 TSH 3rd Generation 0.17 L Venous Blood Potassium Urine Color Yellow Urine Clarity Clear Urine pH 6.0 Ur Specific [place] 1.008 Urine Protein 1+ H Urine Glucose (UA) 1+ H Urine Ketones Trace Urine Blood 1+ H Urine Nitrate Negative Urine Bilirubin Negative Urine Urobilinogen 2.0 Ur Leukocyte Esterase Neg Urine WBC (Auto) 1 Urine Osmolality Ur Random Sodium Ur Random Potassium Salicylates Urine Opiates Screen Negative Urine Methadone Screen Negative Acetaminophen Ur Barbiturates Screen Negative Ur Phencyclidine Scrn Negative Ur Amphetamines Screen Negative U Benzodiazepines Scrn Negative U Oth Cocaine Metabols Negative U Cannabinoids Screen Negative Alcohol, Quantitative < 10 01/31/18 01/31/18 01/31/18 11:11 11:30 11:30 WBC RBC Hgb Hct MCV MCH MCHC RDW Plt Count MPV Neut % (Auto) Lymph % (Auto) [place] % (Auto) Eos % (Auto) Baso % (Auto) Neut # (Auto) Lymph # (Auto) [place] # (Auto) Eos # (Auto) Baso # (Auto) Neutrophils % (Manual) Lymphocytes % (Manual) Monocytes % (Manual) Platelet Estimate RBC Morphology PT INR APTT pO2 51 VBG pH 7.18 L* VBG pCO2 58 VBG HCO3 18.5 VBG Total CO2 23.4 VBG O2 Sat (Calc) 82.8 H VBG Base Excess -7.4 L VBG Potassium > 20.0 H* Glucose 187 H Lactate 2.4 H Crit Value Called To Dr pepe Crit Value Called By Jose stone transport assistant Crit Value Read Back Y Blood Gas Notified Time 1117 Sodium 106.0 L* Potassium Chloride 74.0 L Carbon Dioxide Anion Gap BUN Creatinine Est GFR ( Amer) Est GFR (Non-Af Amer) POC Glucose (mg/dL) Random Glucose Calcium Total Bilirubin AST ALT Alkaline Phosphatase Ammonia Total Creatine Kinase CK-MB (Mass) Troponin I NT-Pro-B Natriuret Pep Total Protein Albumin Globulin Albumin/Globulin Ratio TSH 3rd Generation Venous Blood Potassium > 20.0 H* Urine Color Urine Clarity Urine pH Ur Specific [place] Urine Protein Urine Glucose (UA) Urine Ketones Urine Blood Urine Nitrate Urine Bilirubin Urine Urobilinogen Ur Leukocyte Esterase Urine WBC (Auto) Urine Osmolality Ur Random Sodium Ur Random Potassium Salicylates < 1.0 Urine Opiates Screen Urine Methadone Screen Acetaminophen < 10.0 L Ur Barbiturates Screen Ur Phencyclidine Scrn Ur Amphetamines Screen U Benzodiazepines Scrn U Oth Cocaine Metabols U Cannabinoids Screen Alcohol, Quantitative 01/31/18 01/31/18 01/31/18 11:43 13:01 13:01 WBC RBC Hgb Hct MCV MCH MCHC RDW Plt Count MPV Neut % (Auto) Lymph % (Auto) [place] % (Auto) Eos % (Auto) Baso % (Auto) Neut # (Auto) Lymph # (Auto) [place] # (Auto) Eos # (Auto) Baso # (Auto) Neutrophils % (Manual) Lymphocytes % (Manual) Monocytes % (Manual) Platelet Estimate RBC Morphology PT INR APTT pO2 VBG pH VBG pCO2 VBG HCO3 VBG Total CO2 VBG O2 Sat (Calc) VBG Base Excess VBG Potassium Glucose Lactate Crit Value Called To Crit Value Called By Crit Value Read Back Blood Gas Notified Time Sodium 112 L* Potassium 3.3 L Chloride 74 L Carbon Dioxide 28 Anion Gap 13 BUN 15 Creatinine 1.1 Est GFR ( Amer) > 60 Est GFR (Non-Af Amer) > 60 POC Glucose (mg/dL) Random Glucose 174 H Calcium 8.7 Total Bilirubin 1.6 H AST 78 H ALT 72 Alkaline Phosphatase 58 Ammonia < 9 L Total Creatine Kinase CK-MB (Mass) Troponin I NT-Pro-B Natriuret Pep Total Protein 7.4 Albumin 4.5 Globulin 2.9 Albumin/Globulin Ratio 1.6 TSH 3rd Generation Venous Blood Potassium Urine Color Urine Clarity Urine pH Ur Specific [place] Urine Protein Urine Glucose (UA) Urine Ketones Urine Blood Urine Nitrate Urine Bilirubin Urine Urobilinogen Ur Leukocyte Esterase Urine WBC (Auto) Urine Osmolality 282 L Ur Random Sodium 46 Ur Random Potassium 21.2 Salicylates Urine Opiates Screen Urine Methadone Screen Acetaminophen Ur Barbiturates Screen Ur Phencyclidine Scrn Ur Amphetamines Screen U Benzodiazepines Scrn U Oth Cocaine Metabols U Cannabinoids Screen Alcohol, Quantitative Assessment & Plan - Assessment and Plan (Free Text) Assessment: Hyponatremia:2nd hctz -HTN: restart atenolol, add hydralazine -DM; monitor BGM check HBA1c -continue dvt/pud ppx Patient remains hemodynamically stable. - Date & Time Date: 01/31/18 Time: 16:57
[2018-01-31] MEDS ORDERED: Glucagon Recombinant 1 mg Inj IM PRN (17:16)
[2018-01-31] MEDS ORDERED: Dextrose 50% SYRINGE Inj (50 ml) IVP PRN (17:16)
[2018-01-31 17:58] LABS: OSMOLALITY,URINE 160 mosm/kg (300-1000)
[2018-01-31 18:13] LABS: ALB/GLOB RATIO 1.5 (1.0-2.1); ALBUMIN 4.3 g/dL (3.5-5.0); ALT/SGPT 60 U/L (21-72); AST/SGOT 83 U/L (17-59); BLOOD UREA NITROGEN 13 mg/dL (9-20); CALCIUM 8.2 mg/dl (8.6-10.4); GFR AFRICAN-AMERICAN > 60; GFR NON-AFRICAN AMERICAN > 60
[2018-01-31] MEDS: (Novolin R) Insulin Human Regular 100 units/ml vial SC SCH (21:13)
[2018-02-01 06:46] LABS: ALB/GLOB RATIO 1.5 (1.0-2.1); ALBUMIN 4.6 g/dL (3.5-5.0); ALT/SGPT 61 U/L (21-72); AST/SGOT 97 U/L (17-59); BLOOD UREA NITROGEN 16 mg/dL (9-20); CALCIUM 8.8 mg/dl (8.6-10.4); GFR AFRICAN-AMERICAN > 60; GFR NON-AFRICAN AMERICAN > 60; HDL CHOLESTEROL 44 mg/dL (30-70)
[2018-02-01 06:50] LABS: BLOOD UREA NITROGEN 16 mg/dL (9-20); CALCIUM 8.9 mg/dl (8.6-10.4); GFR AFRICAN-AMERICAN > 60; GFR NON-AFRICAN AMERICAN > 60
[2018-02-01 06:54] LABS: LDL CHOLESTEROL 81 mg/dL (0-129)
[2018-02-01 07:01] LABS: BASO # 0.1 K/uL (0.0-0.2); EOS # 0.1 K/uL (0.0-0.7); EOS % 1.1 % (0.0-4.0); HEMOGLOBIN 14.9 g/dL (12.0-18.0); LYMPH # 1.4 K/uL (1.0-4.3); LYMPH % 18.9 % (20.0-40.0); MEAN CELL VOLUME 89.1 fL (80.0-94.0); MEAN CORPUSCULAR HEMOGLOBIN 32.3 pg (27.0-31.0); MEAN CORPUSCULAR HGB CONC 36.2 g/dL (33.0-37.0); MEAN PLATELET VOLUME 7.4 fL (7.2-11.7); MONO # 1.2 K/uL (0.0-0.8); MONO % 16.8 % (0.0-10.0); NEUT # 4.6 K/uL (1.8-7.0); NEUT % 62.2 % (50.0-75.0); NRBC % 0.8 % (0.0-2.0); RBC 4.62 Mil/uL (4.40-5.90); WHITE BLOOD COUNT 7.3 K/uL (4.8-10.8)
[2018-02-01] MEDS: (Novolin R) Insulin Human Regular 100 units/ml vial SC SCH ×4 (07:35→21:23)
[2018-02-01] MEDS: Sodium Chloride 0.9% 1,000 ML IV SCH ×2 (07:59→16:50)
[2018-02-01] MEDS ORDERED: Potassium Chloride 20 mEq ER Tab PO ONE ×2 (09:57→23:21)
--- NOTE | 2018-02-01 10:36 | CP.PCM.CON ---
History of Present Illness - History of Present Illness History of Present Illness: 57 yo M w/ pmh of htn, dm, ETOH abuse, brought to ED yesterday after being found confused at work; found to be severely hyponatremic for which nephrology is being consulted; Patient reportedly very confused on presentation late yesterday morning, serum Na 111 at the time; was started on IVF w/ NS running at between 50-100 cc/hr; by afternoon time, mental status had improved dramatically, repeat Na early yesterday evening was 118; exact amount of IVF patient received yesterday is unclear but appears to be under 500 cc; This morning, patient reportedly very cohesive, able to give good history; Reports being told about a sodium problem on labs done a few months ago by PCP and there was discussion about stopping HCTZ, however, it was not stopped and he cannot say why (patient apparently lost f/u and his insurance thereafter); He repeatedly mentions being stressed lately due to a bad relationship; he mentions that he is now living in the back office at work; patient reports eating less lately with some weight loss (estimates 5 lbs) and loose fitting pants; denies fever/night sweats; he drinks a 6-pack of beer daily and admits that alcohol has caused substantial relationship and work problems; Patient otherwise denies any dizziness/lightheadedness; denies taking any drugs lately other than what is prescribed for him; denies taking pain meds; denies any muscle aches; has been urinating more lately, ~3 times per night; doesn't check his sugar and reports blurry vision lately; he drinks about 4 bottles of water daily; Review of Systems - Constitutional Constitutional: As Per HPI - EENT Eyes: As Per HPI - Cardiovascular Cardiovascular: absent: Chest Pain, Palpitations - Gastrointestinal Gastrointestinal: absent: Diarrhea, Nausea, Vomiting - Genitourinary Genitourinary: As Per HPI Additional comments: some frothiness of urine; - Musculoskeletal Musculoskeletal: As Per HPI. absent: Arthralgias - Integumentary Integumentary: absent: Pruritus, Rash - Neurological Neurological: As Per HPI, Tremor - Psychiatric Psychiatric: Anxiety - Endocrine Endocrine: Polyuria Past Patient History - Infectious Disease Hx of Infectious Diseases: None - Past Medical History & Family History Past Medical History?: Yes Pertinent Family History: Patient adopted, doesn't know biological family history - Past Social History Smoking Status: Never Smoked - CARDIAC Hx Hypertension: Yes Other/Comment: had stress test last year (normal), doesn't remember why - PULMONARY Hx Respiratory Disorders: No - NEUROLOGICAL Hx Neurological Disorder: No - HEENT Hx HEENT Problems: No - RENAL Hx Chronic Kidney Disease: No - ENDOCRINE/METABOLIC Hx Endocrine Disorders: No - HEMATOLOGICAL/ONCOLOGICAL Hx Blood Disorders: No - INTEGUMENTARY Hx Dermatological Problems: No - MUSCULOSKELETAL/RHEUMATOLOGICAL Hx Gout: Yes - GASTROINTESTINAL Hx Gastrointestinal Disorders: No - GENITOURINARY/GYNECOLOGICAL Hx Genitourinary Disorders: No - PSYCHIATRIC Hx Substance Use: No - SURGICAL HISTORY Hx Surgeries: No - ANESTHESIA Hx Anesthesia: No Meds Allergies/Adverse Reactions: Allergies Allergy/AdvReac Type Severity Reaction Status Date / Time No Known Allergies Allergy Verified 10/31/17 16:45 - Medications Medications: Current Medications Atenolol (Tenormin) 100 mg PO HS [facility] Last Admin: 01/31/18 21:45 Dose: 100 mg Dextrose (Dextrose 50% Inj) 0 ml IVP .STAT PRN; Protocol PRN Reason: Hypoglycemia Protocol Dextrose (Glutose 15) 0 gm PO .ONCE PRN; Protocol PRN Reason: Hypoglycemia Protocol Famotidine (Pepcid) 20 mg PO DAILY [facility] Last Admin: 02/01/18 09:36 Dose: 20 mg Glipizide (Glucotrol) 10 mg PO ACB [facility] Last Admin: 02/01/18 07:32 Dose: 10 mg Glucagon (Glucagen Diagnostic Kit) 0 mg IM .STAT PRN; Protocol PRN Reason: Hypoglycemia Protocol Dextrose (Dextrose 5% In Water 1000 Ml) 1,000 mls @ 0 mls/hr IV .Q0M PRN; Protocol; Per Protocol PRN Reason: Hypoglycemia Protocol Sodium Chloride (Sodium Chloride 0.9%) 1,000 mls @ 100 mls/hr IV .Q10H [facility] Last Admin: 02/01/18 07:59 Dose: 100 mls/hr Insulin Human Regular (Novolin R) 0 unit SC ACHS [facility] PRN Reason: Protocol Last Admin: 02/01/18 07:35 Dose: 2 unit Physical Exam - Constitutional Appears: Non-toxic, No Acute Distress - Eye Exam Eye Exam: Normal appearance. absent: Scleral icterus - ENT Exam ENT Exam: Mucous Membranes Moist - Respiratory Exam Respiratory Exam: Clear to Auscultation Bilateral. absent: Respiratory Distress - Cardiovascular Exam Cardiovascular Exam: RRR, +S1, +S2. absent: Gallop - GI/Abdominal Exam GI & Abdominal Exam: Soft. absent: Distended, Tenderness - Exam Exam: absent: Bladder Distension - Neurological Exam Neurological exam: Alert, Oriented x3 Additional comments: no tremor - Psychiatric Exam Psychiatric exam: Normal Affect, Normal Mood - Skin Skin Exam: Normal Color, Warm Results - Vital Signs Recent Vital Signs: Last Vital Signs Temp 97.7 F 02/01/18 06:00 Pulse 67 02/01/18 06:00 Resp 18 02/01/18 06:00 BP 107/75 02/01/18 06:00 Pulse Ox 100 02/01/18 06:00 - Labs Result Diagrams: 02/01/18 06:15 02/01/18 10:55 Labs: Laboratory Results - last 24 hr 01/31/18 01/31/18 01/31/18 10:37 10:54 10:54 WBC 8.3 RBC 4.22 L Hgb 14.0 Hct 37.5 MCV 88.8 MCH 33.1 H MCHC 37.3 H RDW 14.7 H Plt Count 216 MPV 7.1 L Neut % (Auto) 80.1 H Lymph % (Auto) 7.3 L Cassia % (Auto) 10.8 H Eos % (Auto) 0.1 Baso % (Auto) 1.7 Neut # (Auto) 6.6 Lymph # (Auto) 0.6 L Cassia # (Auto) 0.9 H Eos # (Auto) 0.0 Baso # (Auto) 0.1 Neutrophils % (Manual) 90 H Lymphocytes % (Manual) 4 L Monocytes % (Manual) 6 Platelet Estimate Normal RBC Morphology Normal PT 14.1 H INR 1.3 APTT 29 pO2 VBG pH VBG pCO2 VBG HCO3 VBG Total CO2 VBG O2 Sat (Calc) VBG Base Excess VBG Potassium Glucose Lactate Crit Value Called To Crit Value Called By Crit Value Read Back Blood Gas Notified Time Sodium Potassium Chloride Carbon Dioxide Anion Gap BUN Creatinine Est GFR ( Amer) Est GFR (Non-Af Amer) POC Glucose (mg/dL) 212 H Random Glucose Hemoglobin A1c Calcium Phosphorus Magnesium Total Bilirubin AST ALT Alkaline Phosphatase Ammonia Total Creatine Kinase CK-MB (Mass) Troponin I NT-Pro-B Natriuret Pep Total Protein Albumin Globulin Albumin/Globulin Ratio Triglycerides Cholesterol LDL Cholesterol Direct HDL Cholesterol Free T4 TSH 3rd Generation Cortisol AM Sample Venous Blood Potassium Urine Color Urine Clarity Urine pH Ur Specific [place] Urine Protein Urine Glucose (UA) Urine Ketones Urine Blood Urine Nitrate Urine Bilirubin Urine Urobilinogen Ur Leukocyte Esterase Urine WBC (Auto) Urine Osmolality Ur Random Sodium Ur Random Potassium Salicylates Urine Opiates Screen Urine Methadone Screen Acetaminophen Ur Barbiturates Screen Ur Phencyclidine Scrn Ur Amphetamines Screen U Benzodiazepines Scrn U Oth Cocaine Metabols U Cannabinoids Screen Alcohol, Quantitative 01/31/18 01/31/18 01/31/18 10:54 11:01 11:01 WBC RBC Hgb Hct MCV MCH MCHC RDW Plt Count MPV Neut % (Auto) Lymph % (Auto) Cass[place] % (Auto) Eos % (Auto) Baso % (Auto) Neut # (Auto) Lymph # (Auto) Cass[place] # (Auto) Eos # (Auto) Baso # (Auto) Neutrophils % (Manual) Lymphocytes % (Manual) Monocytes % (Manual) Platelet Estimate RBC Morphology PT INR APTT pO2 VBG pH VBG pCO2 VBG HCO3 VBG Total CO2 VBG O2 Sat (Calc) VBG Base Excess VBG Potassium Glucose Lactate Crit Value Called To Crit Value Called By Crit Value Read Back Blood Gas Notified Time Sodium 111 L* Potassium 2.9 L Chloride 74 L Carbon Dioxide 24 Anion Gap 18 BUN 16 Creatinine 1.1 Est GFR ( Amer) > 60 Est GFR (Non-Af Amer) > 60 POC Glucose (mg/dL) Random Glucose 176 H Hemoglobin A1c Calcium 8.5 L Phosphorus Magnesium Total Bilirubin 1.7 H AST 94 H ALT 75 H Alkaline Phosphatase 49 Ammonia Total Creatine Kinase 822 H CK-MB (Mass) 5.31 H Troponin I < 0.0120 NT-Pro-B Natriuret Pep 176 Total Protein 7.3 Albumin 4.6 Globulin 2.7 Albumin/Globulin Ratio 1.7 Triglycerides Cholesterol LDL Cholesterol Direct HDL Cholesterol Free T4 TSH 3rd Generation 0.17 L Cortisol AM Sample Venous Blood Potassium Urine Color Yellow Urine Clarity Clear Urine pH 6.0 Ur Specific [place] 1.008 Urine Protein 1+ H Urine Glucose (UA) 1+ H Urine Ketones Trace Urine Blood 1+ H Urine Nitrate Negative Urine Bilirubin Negative Urine Urobilinogen 2.0 Ur Leukocyte Esterase Neg Urine WBC (Auto) 1 Urine Osmolality Ur Random Sodium Ur Random Potassium Salicylates Urine Opiates Screen Negative Urine Methadone Screen Negative Acetaminophen Ur Barbiturates Screen Negative Ur Phencyclidine Scrn Negative Ur Amphetamines Screen Negative U Benzodiazepines Scrn Negative U Oth Cocaine Metabols Negative U Cannabinoids Screen Negative Alcohol, Quantitative < 10 01/31/18 01/31/18 01/31/18 11:11 11:30 11:30 WBC RBC Hgb Hct MCV MCH MCHC RDW Plt Count MPV Neut % (Auto) Lymph % (Auto) Cass[place] % (Auto) Eos % (Auto) Baso % (Auto) Neut # (Auto) Lymph # (Auto) [place] # (Auto) Eos # (Auto) Baso # (Auto) Neutrophils % (Manual) Lymphocytes % (Manual) Monocytes % (Manual) Platelet Estimate RBC Morphology PT INR APTT pO2 51 VBG pH 7.18 L* VBG pCO2 58 VBG HCO3 18.5 VBG Total CO2 23.4 VBG O2 Sat (Calc) 82.8 H VBG Base Excess -7.4 L VBG Potassium > 20.0 H* Glucose 187 H Lactate 2.4 H Crit Value Called To Dr pepe 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 Crit Value Read Back Y Blood Gas Notified Time 1117 Sodium 106.0 L* Potassium Chloride 74.0 L Carbon Dioxide Anion Gap BUN Creatinine Est GFR ( Amer) Est GFR (Non-Af Amer) POC Glucose (mg/dL) Random Glucose Hemoglobin A1c Calcium Phosphorus Magnesium Total Bilirubin AST ALT Alkaline Phosphatase Ammonia Total Creatine Kinase CK-MB (Mass) Troponin I NT-Pro-B Natriuret Pep Total Protein Albumin Globulin Albumin/Globulin Ratio Triglycerides Cholesterol LDL Cholesterol Direct HDL Cholesterol Free T4 TSH 3rd Generation Cortisol AM Sample Venous Blood Potassium > 20.0 H* Urine Color Urine Clarity Urine pH Ur Specific [place] Urine Protein Urine Glucose (UA) Urine Ketones Urine Blood Urine Nitrate Urine Bilirubin Urine Urobilinogen Ur Leukocyte Esterase Urine WBC (Auto) Urine Osmolality Ur Random Sodium Ur Random Potassium Salicylates < 1.0 Urine Opiates Screen Urine Methadone Screen Acetaminophen < 10.0 L Ur Barbiturates Screen Ur Phencyclidine Scrn Ur Amphetamines Screen U Benzodiazepines Scrn U Oth Cocaine Metabols U Cannabinoids Screen Alcohol, Quantitative 06/16/18 06/16/18 06/16/18 11:43 13:01 13:01 WBC RBC Hgb Hct MCV MCH MCHC RDW Plt Count MPV Neut % (Auto) Lymph % (Auto) [place] % (Auto) Eos % (Auto) Baso % (Auto) Neut # (Auto) Lymph # (Auto) [place] # (Auto) Eos # (Auto) Baso # (Auto) Neutrophils % (Manual) Lymphocytes % (Manual) Monocytes % (Manual) Platelet Estimate RBC Morphology PT INR APTT pO2 VBG pH VBG pCO2 VBG HCO3 VBG Total CO2 VBG O2 Sat (Calc) VBG Base Excess VBG Potassium Glucose Lactate Crit Value Called To Crit Value Called By Crit Value Read Back Blood Gas Notified Time Sodium 112 L* Potassium 3.3 L Chloride 74 L Carbon Dioxide 28 Anion Gap 13 BUN 15 Creatinine 1.1 Est GFR ( Amer) > 60 Est GFR (Non-Af Amer) > 60 POC Glucose (mg/dL) Random Glucose 174 H Hemoglobin A1c Calcium 8.7 Phosphorus Magnesium Total Bilirubin 1.6 H AST 78 H ALT 72 Alkaline Phosphatase 58 Ammonia < 9 L Total Creatine Kinase CK-MB (Mass) Troponin I NT-Pro-B Natriuret Pep Total Protein 7.4 Albumin 4.5 Globulin 2.9 Albumin/Globulin Ratio 1.6 Triglycerides Cholesterol LDL Cholesterol Direct HDL Cholesterol Free T4 TSH 3rd Generation Cortisol AM Sample Venous Blood Potassium Urine Color Urine Clarity Urine pH Ur Specific [place] Urine Protein Urine Glucose (UA) Urine Ketones Urine Blood Urine Nitrate Urine Bilirubin Urine Urobilinogen Ur Leukocyte Esterase Urine WBC (Auto) Urine Osmolality 282 L Ur Random Sodium 46 Ur Random Potassium 21.2 Salicylates Urine Opiates Screen Urine Methadone Screen Acetaminophen Ur Barbiturates Screen Ur Phencyclidine Scrn Ur Amphetamines Screen U Benzodiazepines Scrn U Oth Cocaine Metabols U Cannabinoids Screen Alcohol, Quantitative 01/31/18 01/31/18 01/31/18 17:50 17:51 17:51 WBC RBC Hgb Hct MCV MCH MCHC RDW Plt Count MPV Neut % (Auto) Lymph % (Auto) [place] % (Auto) Eos % (Auto) Baso % (Auto) Neut # (Auto) Lymph # (Auto) [place] # (Auto) Eos # (Auto) Baso # (Auto) Neutrophils % (Manual) Lymphocytes % (Manual) Monocytes % (Manual) Platelet Estimate RBC Morphology PT INR APTT pO2 VBG pH VBG pCO2 VBG HCO3 VBG Total CO2 VBG O2 Sat (Calc) VBG Base Excess VBG Potassium Glucose Lactate Crit Value Called To Crit Value Called By Crit Value Read Back Blood Gas Notified Time Sodium 118 L* Potassium 3.5 L Chloride 81 L Carbon Dioxide 25 Anion Gap 16 BUN 13 Creatinine 1.0 Est GFR ( Amer) > 60 Est GFR (Non-Af Amer) > 60 POC Glucose (mg/dL) 130 H Random Glucose 105 Hemoglobin A1c Calcium 8.2 L Phosphorus 4.3 Magnesium 2.2 Total Bilirubin 2.0 H AST 83 H ALT 60 Alkaline Phosphatase 41 Ammonia Total Creatine Kinase CK-MB (Mass) Troponin I NT-Pro-B Natriuret Pep Total Protein 7.3 Albumin 4.3 Globulin 3.0 Albumin/Globulin Ratio 1.5 Triglycerides Cholesterol LDL Cholesterol Direct HDL Cholesterol Free T4 1.30 TSH 3rd Generation 0.31 L Cortisol AM Sample Venous Blood Potassium Urine Color Urine Clarity Urine pH Ur Specific [place] Urine Protein Urine Glucose (UA) Urine Ketones Urine Blood Urine Nitrate Urine Bilirubin Urine Urobilinogen Ur Leukocyte Esterase Urine WBC (Auto) Urine Osmolality Ur Random Sodium Ur Random Potassium Salicylates Urine Opiates Screen Urine Methadone Screen Acetaminophen Ur Barbiturates Screen Ur Phencyclidine Scrn Ur Amphetamines Screen U Benzodiazepines Scrn U Oth Cocaine Metabols U Cannabinoids Screen Alcohol, Quantitative 01/31/18 01/31/18 02/01/18 17:51 21:00 06:15 WBC RBC Hgb Hct MCV MCH MCHC RDW Plt Count MPV Neut % (Auto) Lymph % (Auto) [place] % (Auto) Eos % (Auto) Baso % (Auto) Neut # (Auto) Lymph # (Auto) [place] # (Auto) Eos # (Auto) Baso # (Auto) Neutrophils % (Manual) Lymphocytes % (Manual) Monocytes % (Manual) Platelet Estimate RBC Morphology PT INR APTT pO2 VBG pH VBG pCO2 VBG HCO3 VBG Total CO2 VBG O2 Sat (Calc) VBG Base Excess VBG Potassium Glucose Lactate Crit Value Called To Crit Value Called By Crit Value Read Back Blood Gas Notified Time Sodium 118 L* Potassium 3.7 Chloride 82 L Carbon Dioxide 26 Anion Gap 14 BUN 16 Creatinine 1.0 Est GFR ( Amer) > 60 Est GFR (Non-Af Amer) > 60 POC Glucose (mg/dL) 130 H Random Glucose 127 H Hemoglobin A1c Calcium 8.8 Phosphorus Magnesium Total Bilirubin 1.6 H AST 97 H ALT 61 Alkaline Phosphatase 59 Ammonia Total Creatine Kinase CK-MB (Mass) Troponin I NT-Pro-B Natriuret Pep Total Protein 7.6 Albumin 4.6 Globulin 3.0 Albumin/Globulin Ratio 1.5 Triglycerides 101 Cholesterol 147 LDL Cholesterol Direct 81 HDL Cholesterol 44 Free T4 TSH 3rd Generation Cortisol AM Sample Venous Blood Potassium Urine Color Urine Clarity Urine pH Ur Specific [place] Urine Protein Urine Glucose (UA) Urine Ketones Urine Blood Urine Nitrate Urine Bilirubin Urine Urobilinogen Ur Leukocyte Esterase Urine WBC (Auto) Urine Osmolality 160 L Ur Random Sodium 32 Ur Random Potassium Salicylates Urine Opiates Screen Urine Methadone Screen Acetaminophen Ur Barbiturates Screen Ur Phencyclidine Scrn Ur Amphetamines Screen U Benzodiazepines Scrn U Oth Cocaine Metabols U Cannabinoids Screen Alcohol, Quantitative 02/01/18 02/01/18 02/01/18 06:15 06:15 06:15 WBC 7.3 RBC 4.62 Hgb 14.9 Hct 41.1 MCV 89.1 MCH 32.3 H MCHC 36.2 RDW 15.0 H Plt Count 201 MPV 7.4 Neut % (Auto) 62.2 Lymph % (Auto) 18.9 L [place] % (Auto) 16.8 H Eos % (Auto) 1.1 Baso % (Auto) 1.0 Neut # (Auto) 4.6 Lymph # (Auto) 1.4 Cassia # (Auto) 1.2 H Eos # (Auto) 0.1 Baso # (Auto) 0.1 Neutrophils % (Manual) Lymphocytes % (Manual) Monocytes % (Manual) Platelet Estimate RBC Morphology PT INR APTT pO2 VBG pH VBG pCO2 VBG HCO3 VBG Total CO2 VBG O2 Sat (Calc) VBG Base Excess VBG Potassium Glucose Lactate Crit Value Called To Crit Value Called By Crit Value Read Back Blood Gas Notified Time Sodium Potassium Chloride Carbon Dioxide Anion Gap BUN Creatinine Est GFR ( Amer) Est GFR (Non-Af Amer) POC Glucose (mg/dL) Random Glucose Hemoglobin A1c 6.9 H Calcium Phosphorus Magnesium Total Bilirubin AST ALT Alkaline Phosphatase Ammonia Total Creatine Kinase CK-MB (Mass) Troponin I NT-Pro-B Natriuret Pep Total Protein Albumin Globulin Albumin/Globulin Ratio Triglycerides Cholesterol LDL Cholesterol Direct HDL Cholesterol Free T4 TSH 3rd Generation Cortisol AM Sample 23.7 H Venous Blood Potassium Urine Color Urine Clarity Urine pH Ur Specific [place] Urine Protein Urine Glucose (UA) Urine Ketones Urine Blood Urine Nitrate Urine Bilirubin Urine Urobilinogen Ur Leukocyte Esterase Urine WBC (Auto) Urine Osmolality Ur Random Sodium Ur Random Potassium Salicylates Urine Opiates Screen Urine Methadone Screen Acetaminophen Ur Barbiturates Screen Ur Phencyclidine Scrn Ur Amphetamines Screen U Benzodiazepines Scrn U Oth Cocaine Metabols U Cannabinoids Screen Alcohol, Quantitative 02/01/18 02/01/18 02/01/18 06:15 06:15 07:26 WBC RBC Hgb Hct MCV MCH MCHC RDW Plt Count MPV Neut % (Auto) Lymph % (Auto) [place] % (Auto) Eos % (Auto) Baso % (Auto) Neut # (Auto) Lymph # (Auto) [place] # (Auto) Eos # (Auto) Baso # (Auto) Neutrophils % (Manual) Lymphocytes % (Manual) Monocytes % (Manual) Platelet Estimate RBC Morphology PT INR APTT pO2 VBG pH VBG pCO2 VBG HCO3 VBG Total CO2 VBG O2 Sat (Calc) VBG Base Excess VBG Potassium Glucose Lactate Crit Value Called To Crit Value Called By Crit Value Read Back Blood Gas Notified Time Sodium 119 L* Potassium 3.2 L Chloride 82 L Carbon Dioxide 26 Anion Gap 14 BUN 16 Creatinine 1.1 Est GFR ( Amer) > 60 Est GFR (Non-Af Amer) > 60 POC Glucose (mg/dL) 165 H Random Glucose 131 H Hemoglobin A1c Calcium 8.9 Phosphorus Magnesium Total Bilirubin AST ALT Alkaline Phosphatase Ammonia Total Creatine Kinase CK-MB (Mass) Troponin I NT-Pro-B Natriuret Pep Total Protein Albumin Globulin Albumin/Globulin Ratio Triglycerides Cholesterol LDL Cholesterol Direct HDL Cholesterol Free T4 TSH 3rd Generation Cortisol AM Sample Venous Blood Potassium Urine Color Urine Clarity Urine pH Ur Specific [place] Urine Protein Urine Glucose (UA) Urine Ketones Urine Blood Urine Nitrate Urine Bilirubin Urine Urobilinogen Ur Leukocyte Esterase Urine WBC (Auto) Urine Osmolality 306 Ur Random Sodium 26 Ur Random Potassium 9.7 Salicylates Urine Opiates Screen Urine Methadone Screen Acetaminophen Ur Barbiturates Screen Ur Phencyclidine Scrn Ur Amphetamines Screen U Benzodiazepines Scrn U Oth Cocaine Metabols U Cannabinoids Screen Alcohol, Quantitative - Imaging and Cardiology Chest x-ray Status: Image reviewed by me Additional comment: lungs clear Assessment & Plan (1) Hyponatremia Assessment and Plan: Severe hyponatremia likely multifactorial in the setting of HCTZ use, inadequate solute intake secondary to ETOH abuse, and likely some element of volume depletion from hyperglycemic osmotic diuresis; history consistent with overall chronic hyponatremia (patient also mentions some sodium issue seen on labs a few months ago); rapid improvement in mental status on rapid correction of serum Na by 7 meq yesterday is consistent with an acute component of hyponatremia although cause of acuity is unclear; no mention of any seizure activity/loss of consciousness; Nevertheless, goal now is to treat as chronic hyponatremia and treat to raise serum Na by no more than 8 meq over 24 hr period; -Restarting NS at 100 cc/hr for 2 hrs this morning; checking bmp subsequently; should repeat bmp q6h; -Correct hypokalemia (will help increase serum Na); -continue to hold hctz; will hold losartan as well (has been reported rarely to cause hyponatremia); -1500 cc PO fluid restriction; Status: Acute (2) Hypokalemia Assessment and Plan: Mild, see above; checking Mag level; Status: Acute (3) HTN (hypertension) Assessment and Plan: BP elevated on presentation but now at lower end of normal; on atenolol, continue; hold rest of meds as above; Status: Acute (4) Proteinuria Assessment and Plan: 1+ albuminuria by dipstick; may be indicative of underlying CKD; -checking random urine for protein, microalbumin and creatinine; -checking C3, C4, hep B and C serology, HIV Ab; Status: Acute (5) Rhabdomyolysis Assessment and Plan: Relatively mild; etiology unclear, normal Ur tox; repeating CK and phos levels; Status: Acute - Assessment and Plan (Free Text) Assessment: Critical care time > 35 minutes;
[2018-02-01 11:25] LABS: COMPLEMENT C4 34.8 mg/dL (14.0-44.0)
[2018-02-01 11:27] LABS: BLOOD UREA NITROGEN 15 mg/dL (9-20); CALCIUM 8.6 mg/dl (8.6-10.4); GFR AFRICAN-AMERICAN > 60; GFR NON-AFRICAN AMERICAN > 60; SQUAMOUS EPITHIAL < 1 /hpf (0-5); URINE BILIRUBIN NEGATIVE (NEGATIVE); URINE BLOOD NEGATIVE (NEGATIVE); URINE CLARITY Clear (Clear); URINE COLOR Yellow (YELLOW); URINE GLUCOSE (UA) NORMAL (Normal); URINE LEUKOCYTE ESTERASE NEG Leu/uL (Negative); URINE PROTEIN NEGATIVE (NEGATIVE)
--- NOTE | 2018-02-01 11:34 | PCM.PSYCH ---
Initial Psychiatric Evaluation - Initial Psychiatric Evaluation Type of Admission: Voluntary Legal Status: Capacity Chief Complaint (in patient's own words): "I am stressed" History of Present Illness and Precipitating Events: The pt is seen, chart reviewed, case discussed This is a 57 y/o AAM, with no child. 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 He was found confused and passed out on the floor at work. He has hyponatremia, which is likely why he had the confusion/agitation. He has depressive sxs and anxiety too He admits to drinking but denies problem-drinking and drug use. Agrees with following up with outpt psych No SI, AVH, delusions. Not agitated or confused today Past psych hx: Denied Family psych hx: He is adopted. Medical hx: HTN, DM-I Current Medications: Active Medications Generic Name Dose Route Start Last Admin Trade Name Martina PRN Reason Stop Dose Admin Atenolol 100 mg 01/31/18 22:00 01/31/18 21:45 Tenormin PO 100 mg HS LINDY Administration Dextrose 0 ml 01/31/18 17:16 Dextrose 50% Inj IVP .STAT PRN Hypoglycemia Protocol Protocol Dextrose 0 gm 01/31/18 17:16 Glutose 15 PO .ONCE PRN Hypoglycemia Protocol Protocol Famotidine 20 mg 02/01/18 10:00 02/01/18 09:36 Pepcid PO 20 mg DAILY LINDY Administration Glipizide 10 mg 02/01/18 07:30 02/01/18 07:32 Glucotrol PO 10 mg ACB LINDY Administration Glucagon 0 mg 01/31/18 17:16 Glucagen Diagnostic Kit IM .STAT PRN Hypoglycemia Protocol Protocol Dextrose 1,000 mls @ 0 mls/hr 01/31/18 17:16 Dextrose 5% In Water 1000 Ml IV .Q0M PRN Hypoglycemia Protocol Protocol Per Protocol Sodium Chloride 1,000 mls @ 100 mls/hr 02/01/18 07:45 02/01/18 07:59 Sodium Chloride 0.9% IV 100 mls/hr .Q10H LINDY Administration Insulin Human Regular 0 unit 01/31/18 22:00 02/01/18 07:35 Novolin R ME 2 unit ACHS LINDY Administration Protocol Past Psychiatric History - Past Psychiatric History Previous Treatment History: None Pertinent Medical Hx (Current Medical&Sleep Prob, Allergies): Allergies Allergy/AdvReac Type Severity Reaction Status Date / Time No Known Allergies Allergy Verified 10/31/17 16:45 Atenolol [Tenormin] 100 mg PO DAILY 10/31/17 Azithromycin [Z-Miguelangel] 250 mg PO DAILY #6 tab 10/31/17 Fluticasone Propionate [Flonase] 1 spr NS DAILY #1 bottle 10/31/17 Losartan/Hydrochlorothiazide [Hyzaar 25 mg-100 mg] 1 tab PO DAILY 10/31/17 Prednisone [Deltasone] 40 mg PO DAILY #2 tablet 10/31/17 Review of Systems - Neurological Neurological: UNREMARKABLE - Psychiatric Psychiatric: Abnormal Sleep Pattern, Anhedonia, Anxiety, Depression, Difficulty Concentrating, Irritability. absent: Hallucinations, Homicidal Ideation, Paranoia, Suicidal Ideation Mental Status Examination - Personal Presentation Personal Presentation: Looks stated age - Affect Affect: Constricted - Motor Activity Motor Activity: Calm - Reliability in Providing Information Reliability in Providing Information: Good - Speech Speech: Organized - Mood Mood: Depressed, Anxious - Formal Thought Process Formal Thought Process: No Impairment - Cognitive Functions Orientation: Person, Place, Situation, Time Sensorium: Alert Attention/Concentration: Attentive Estimate of Intelligence: Average Judgement: Intact, as evidence by: Insight regarding need for hospitalization Memory: Recent intact, as evidence by: Ability to recall events of the day, Remote intact, as evidenced by: Abilit to recall sig. life events - Risk Risk: Diminished functioning - Strength & Assets Inventory Strength & Assets Inventory: Cooperative - Limitations Limitations: Living alone, Other DSM 5 DX - DSM 5 DSM 5 Diagnosis: Major depressive d/o- single, severe r/o adjustment d/o with anxiety - Recommended/Plan of Treatment Treatment Recommendations and Plan of Treatment: Remeron for depression Low dose klonopin x3 days Psychoed and support Refer to outpatient psychiatry 33 min
[2018-02-01 16:21] LABS: ALB/GLOB RATIO 1.4 (1.0-2.1); ALBUMIN 3.8 g/dL (3.5-5.0); ALT/SGPT 61 U/L (21-72); AST/SGOT 51 U/L (17-59); BLOOD UREA NITROGEN 15 mg/dL (9-20); CALCIUM 8.4 mg/dl (8.6-10.4); GFR AFRICAN-AMERICAN > 60; GFR NON-AFRICAN AMERICAN > 60
--- NOTE | 2018-02-01 17:47 | CP.PCM.PN ---
<Isac Adams - Last Filed: 02/01/18 17:44> Subjective - Date & Time of Evaluation Date of Evaluation: 02/01/18 Time of Evaluation: 10:40 - Subjective Subjective: Patient seen and examined at beside. Patient was downgraded from ICU to tele late yesterday evening. Patient's mentation improved significantly is no longer confused or agitated. However, patient states he is depressed and embarrassed about his relationship with girlfriend. Otherwise patient is resting comfortably in bed. He denies having fever, chills, blurred vision, headache, shortness of breath, chest pain, nausea, vomiting, or urinary complains. Objective - Vital Signs/Intake and Output Vital Signs (last 24 hours): Temp Pulse Resp BP Pulse Ox 98.3 F 60 16 105/65 97 02/01/18 12:00 02/01/18 14:18 02/01/18 14:18 02/01/18 14:18 02/01/18 14:18 Intake and Output: 02/01/18 02/01/18 06:59 18:59 Intake Total 1525 Output Total 1500 Balance 25 - Medications Medications: Current Medications Atenolol (Tenormin) 100 mg PO HS [facility] Last Admin: 01/31/18 21:45 Dose: 100 mg Clonazepam (Klonopin) 0.5 mg PO BID [facility] Stop: 02/04/18 11:46 Last Admin: 02/01/18 17:04 Dose: 0.5 mg Dextrose (Dextrose 50% Inj) 0 ml IVP .STAT PRN; Protocol PRN Reason: Hypoglycemia Protocol Dextrose (Glutose 15) 0 gm PO .ONCE PRN; Protocol PRN Reason: Hypoglycemia Protocol Famotidine (Pepcid) 20 mg PO DAILY [facility] Last Admin: 02/01/18 09:36 Dose: 20 mg Glipizide (Glucotrol) 10 mg PO ACB [facility] Last Admin: 02/01/18 07:32 Dose: 10 mg Glucagon (Glucagen Diagnostic Kit) 0 mg IM .STAT PRN; Protocol PRN Reason: Hypoglycemia Protocol Dextrose (Dextrose 5% In Water 1000 Ml) 1,000 mls @ 0 mls/hr IV .Q0M PRN; Protocol; Per Protocol PRN Reason: Hypoglycemia Protocol Sodium Chloride (Sodium Chloride 0.9%) 1,000 mls @ 100 mls/hr IV .Q10H LINDY Last Admin: 02/01/18 16:50 Dose: Not Given Insulin Human Regular (Novolin R) 0 unit SC ACHS LINDY PRN Reason: Protocol Last Admin: 02/01/18 16:38 Dose: Not Given Mirtazapine (Remeron) 15 mg PO HS LINDY - Labs Labs: 02/01/18 06:15 02/01/18 16:00 PT 14.1 SECONDS (9.7-12.2) H 01/31/18 10:54 INR 1.3 01/31/18 10:54 APTT 29 SECONDS (21-34) 01/31/18 10:54 - Additional Findings Additional findings: - Constitutional Appears: Non-toxic, No Acute Distress, Confused - Head Exam Head Exam: ATRAUMATIC, NORMOCEPHALIC - Eye Exam Eye Exam: EOMI, Normal appearance Pupil Exam: NORMAL ACCOMODATION - ENT Exam ENT Exam: Mucous Membranes Moist - Neck Exam Neck exam: Positive for: Normal Inspection. Negative for: Tenderness, Thyromegaly - Respiratory Exam Respiratory Exam: Clear to Auscultation Bilateral, NORMAL BREATHING PATTERN. absent: Wheezes, Respiratory Distress - Cardiovascular Exam Cardiovascular Exam: REGULAR RHYTHM, +S1, +S2. absent: Diastolic murmur, Systolic Murmur - GI/Abdominal Exam GI & Abdominal Exam: Normal Bowel Sounds, Soft. absent: Tenderness - Extremities Exam Extremities exam: Positive for: normal capillary refill, normal inspection, pedal pulses present. Negative for: joint swelling, pedal edema, tenderness - Back Exam Back exam: absent: CVA tenderness (L), CVA tenderness (R) Additional comments: lipoma excision scars right upper back, bilateral lower back - Neurological Exam Neurological exam: Alert, Altered, CN II-XII Intact, Motor Sensory Deficit - Psychiatric Exam Psychiatric exam: Normal Affect, Normal Mood - Skin Skin Exam: Dry, Normal Color, Warm Assessment and Plan - Assessment and Plan (Free Text) Assessment: Hyponatremia -Na 119 this morning, targeted 24hr correction: <12 to avoid neurological symptoms -possible secondary to HCTZ -Likely also the cause of AMS, CT Head showed mild atrophy -Calculated serum osmo 239.4 -Repeated TSH 0.31, free T4 1.30 -Lipid panel -Cortisol level at 7am: 23.7 -Urine sodium, urine osmo -Nephrology consulted, Dr. Shetty help appreciated -Further recommendations per Nephrology -Seizure precaution Hypokalemia, improving -K 3.4 on arrival, replete -Follow up BM Hypochloremia, improving -Cl 82 -Patient is given NS Elevated T. Bili -T bili 1.6 -Follow up am CMP Low TSH -TSH 0.17, repeat shows 0.31 -normal free T4 H/o HTN -Atenolol 100mg PO HS -Cozaar 100mg AM -Hold HCTZ H/o DM2 -Hgb 6.9 -lipid panel unremarkable -Glipizide 10mg po -RISS moderate ACHS -Hypoglycemic protocol -Start Lisinopril 2.5mg as prevention to proteinuria Prophylactic measures -VT Risk score assessment 1 -Bilateral SCD -Pepcid <Darrell Barber - Last Filed: 02/01/18 19:00> Objective - Vital Signs/Intake and Output Vital Signs (last 24 hours): Temp Pulse Resp BP Pulse Ox 98.5 F 83 14 129/83 98 02/01/18 16:00 02/01/18 18:18 02/01/18 18:18 02/01/18 18:18 02/01/18 18:18 Intake and Output: 02/01/18 02/01/18 06:59 18:59 Intake Total 1525 Output Total 2300 Balance -775 - Medications Medications: Current Medications Atenolol (Tenormin) 100 mg PO HS [facility] Last Admin: 01/31/18 21:45 Dose: 100 mg Clonazepam (Klonopin) 0.5 mg PO BID [facility] Stop: 02/04/18 11:46 Last Admin: 02/01/18 17:04 Dose: 0.5 mg Dextrose (Dextrose 50% Inj) 0 ml IVP .STAT PRN; Protocol PRN Reason: Hypoglycemia Protocol Dextrose (Glutose 15) 0 gm PO .ONCE PRN; Protocol PRN Reason: Hypoglycemia Protocol Famotidine (Pepcid) 20 mg PO DAILY [facility] Last Admin: 02/01/18 09:36 Dose: 20 mg Glipizide (Glucotrol) 10 mg PO ACB [facility] Last Admin: 02/01/18 07:32 Dose: 10 mg Glucagon (Glucagen Diagnostic Kit) 0 mg IM .STAT PRN; Protocol PRN Reason: Hypoglycemia Protocol Dextrose (Dextrose 5% In Water 1000 Ml) 1,000 mls @ 0 mls/hr IV .Q0M PRN; Protocol; Per Protocol PRN Reason: Hypoglycemia Protocol Sodium Chloride (Sodium Chloride 0.9%) 1,000 mls @ 100 mls/hr IV .Q10H LINDY Last Admin: 02/01/18 16:50 Dose: Not Given Insulin Human Regular (Novolin R) 0 unit SC ACHS LINDY PRN Reason: Protocol Last Admin: 02/01/18 16:38 Dose: Not Given Lisinopril (Zestril) 2.5 mg PO DAILY LINDY Mirtazapine (Remeron) 15 mg PO HS LINDY - Labs Labs: 02/01/18 06:15 02/01/18 16:00 PT 14.1 SECONDS (9.7-12.2) H 01/31/18 10:54 INR 1.3 01/31/18 10:54 APTT 29 SECONDS (21-34) 01/31/18 10:54 Attending/Attestation - Attestation I have personally seen and examined this patient.: Yes I have fully participated in the care of the patient.: Yes I have reviewed all pertinent clinical information, including history, physical exam and plan: Yes Notes (Text): 02/01/18 18:54 Patient was seen and examined at 3:00 PM. Assessment and plan were gone over with the resident. Please note that under HTN patient is NOT on Cozaar, which was discontinued as may (in rare instances) contribute to the Hyponatremia Please also note the following additional assessment and plan: Proteinuria: C3 and C4 levels are normal, HIV is negative, F/U Urine Microalbmin and Cr. Lisinopril 2.5 mg PO 1x/day was added for renal protection considering the DM 2. Smaller dose of Lisinopril added due to current low blood pressure readings. Medicine Team: F/U Psychiatry Consult report (not available at time of my exam) for recommendations Will need clearance from Nephrology Dr. Shetty before discharging patient Darrell Barber D.O.
[2018-02-01 22:20] LABS: BLOOD UREA NITROGEN 16 mg/dL (9-20); CALCIUM 8.4 mg/dl (8.6-10.4); GFR AFRICAN-AMERICAN > 60; GFR NON-AFRICAN AMERICAN > 60
[2018-02-01 23:40] LABS: OSMOLALITY,URINE 296 mosm/kg (300-1000)
[2018-02-02 05:50] LABS: BASO # 0.1 K/uL (0.0-0.2); EOS # 0.2 K/uL (0.0-0.7); EOS % 2.6 % (0.0-4.0); HEMOGLOBIN 13.1 g/dL (12.0-18.0); LYMPH # 1.6 K/uL (1.0-4.3); LYMPH % 23.1 % (20.0-40.0); MEAN CELL VOLUME 90.8 fL (80.0-94.0); MEAN CORPUSCULAR HEMOGLOBIN 32.4 pg (27.0-31.0); MEAN CORPUSCULAR HGB CONC 35.7 g/dL (33.0-37.0); MONO # 0.9 K/uL (0.0-0.8); MONO % 12.4 % (0.0-10.0); NEUT # 4.3 K/uL (1.8-7.0); NEUT % 60.9 % (50.0-75.0); NRBC % 0.1 % (0.0-2.0); RBC 4.06 Mil/uL (4.40-5.90); RED CELL DISTRIBUTION WIDTH 14.9 % (11.5-14.5)
[2018-02-02 06:35] LABS: ALB/GLOB RATIO 1.3 (1.0-2.1); ALBUMIN 3.6 g/dL (3.5-5.0); ALT/SGPT 64 U/L (21-72); AST/SGOT 66 U/L (17-59); BLOOD UREA NITROGEN 13 mg/dL (9-20); CALCIUM 8.2 mg/dl (8.6-10.4); GFR AFRICAN-AMERICAN > 60; GFR NON-AFRICAN AMERICAN > 60
[2018-02-02] MEDS: (Novolin R) Insulin Human Regular 100 units/ml vial SC SCH ×4 (07:37→21:36)
[2018-02-02] MEDS: Sodium Chloride 0.9% 1,000 ML IV SCH ×2 (09:59→16:18)
[2018-02-02 10:59] LABS: HEP B SURFACE AG CONF CONFIRMED POSITIVE; HEPATITIS B SURFACE AG Reactive (NEGATIVE)
--- NOTE | 2018-02-02 13:35 | PCM.PYCHPN ---
Psychiatric Progress Note - Psychiatric Progress Note Patient seen today, length of contact: 15 min Patient Chief Complaint: "I am better" Problems Identified/Issues Discussed: The pt is seen, chart reviewed, case discussed with staff. The pt is compliant with medications and reports no side-effects. Symptoms are improving but needs more time to stabilize. He just started meds. After care discussed, support and psychoeducation given. Psych will sign off Medication Change: No Medical Record Reviewed: Yes Mental Status Examination - Cognitive Function Orientation: Person, Place, Situation, Time Memory: Intact Attention: WNL Concentration: Poor Association: WNL Fund of Knowledge: WNL - Mood Mood: Depressed, Anxious - Affect Affect: Constricted - Speech Speech: Appropriate - Formal Thought Process Formal Thought Process: No Impairment - Suicidal Ideation Suicidal Ideation: No - Homicidal Ideation Homicidal Ideation: No Goal/Treatment Plan - Goal/Treatment Plan Need for Continued Stay: Other (medical) Progress Toward Problem(s) and Goals/Treatment Plan: Remeron for depression Low dose klonopin x3 days Psychoed and support Refer to outpatient psychiatry
[2018-02-02 15:29] LABS: BLOOD UREA NITROGEN 11 mg/dL (9-20); CALCIUM 8.4 mg/dl (8.6-10.4); GFR AFRICAN-AMERICAN > 60; GFR NON-AFRICAN AMERICAN > 60
--- NOTE | 2018-02-02 16:30 | CP.PCM.PN ---
<Julisa Ramirez - Last Filed: 02/02/18 16:26> Subjective - Date & Time of Evaluation Date of Evaluation: 02/02/18 Time of Evaluation: 07:00 - Subjective Subjective: PGY1- Dr. Schnieder's service Patient seen and examined at bedside. Patient's only complaint is that he is tired. Otherwise, patient says he feels fine. Patient denies fevers, chills, headache, blurry vision, chest pain, shortness of breath, abdominal pain, nausea , vomiting, constipation, or diarrhea. Objective - Vital Signs/Intake and Output Vital Signs (last 24 hours): Temp Pulse Resp BP Pulse Ox 98 F 74 16 134/87 97 02/02/18 16:00 02/02/18 16:00 02/02/18 16:00 02/02/18 16:00 02/02/18 16:00 Intake and Output: 02/02/18 02/02/18 06:59 18:59 Intake Total 1000 950 Output Total 800 800 Balance 200 150 - Medications Medications: Current Medications Atenolol (Tenormin) 100 mg PO HS [facility] Last Admin: 02/01/18 21:55 Dose: 100 mg Clonazepam (Klonopin) 0.5 mg PO BID [facility] Stop: 02/04/18 11:46 Last Admin: 02/02/18 09:26 Dose: 0.5 mg Dextrose (Dextrose 50% Inj) 0 ml IVP .STAT PRN; Protocol PRN Reason: Hypoglycemia Protocol Dextrose (Glutose 15) 0 gm PO .ONCE PRN; Protocol PRN Reason: Hypoglycemia Protocol Famotidine (Pepcid) 20 mg PO DAILY [facility] Last Admin: 02/02/18 09:26 Dose: 20 mg Glipizide (Glucotrol) 10 mg PO ACB [facility] Last Admin: 02/02/18 08:07 Dose: 10 mg Glucagon (Glucagen Diagnostic Kit) 0 mg IM .STAT PRN; Protocol PRN Reason: Hypoglycemia Protocol Dextrose (Dextrose 5% In Water 1000 Ml) 1,000 mls @ 0 mls/hr IV .Q0M PRN; Protocol; Per Protocol PRN Reason: Hypoglycemia Protocol Sodium Chloride (Sodium Chloride 0.9%) 1,000 mls @ 75 mls/hr IV .[id number] [facility] Last Admin: 02/02/18 16:18 Dose: 75 mls/hr Insulin Human Regular (Novolin R) 0 unit SC ACHS [facility] PRN Reason: Protocol Last Admin: 02/02/18 16:17 Dose: 2 unit Lisinopril (Zestril) 2.5 mg PO DAILY [facility] Last Admin: 02/02/18 09:26 Dose: 2.5 mg Mirtazapine (Remeron) 15 mg PO HS [facility] Last Admin: 02/01/18 21:55 Dose: 15 mg - Labs Labs: 02/02/18 05:37 02/02/18 15:11 PT 14.1 SECONDS (9.7-12.2) H 01/31/18 10:54 INR 1.3 01/31/18 10:54 APTT 29 SECONDS (21-34) 01/31/18 10:54 - Additional Findings Additional findings: - Constitutional Appears: Non-toxic, No Acute Distress, Confused - Head Exam Head Exam: ATRAUMATIC, NORMOCEPHALIC - Eye Exam Eye Exam: EOMI, Normal appearance Pupil Exam: NORMAL ACCOMODATION - ENT Exam ENT Exam: Mucous Membranes Moist - Neck Exam Neck exam: Positive for: Normal Inspection. Negative for: Tenderness, Thyromegaly - Respiratory Exam Respiratory Exam: Clear to Auscultation Bilateral, NORMAL BREATHING PATTERN. absent: Wheezes, Respiratory Distress - Cardiovascular Exam Cardiovascular Exam: REGULAR RHYTHM, +S1, +S2. absent: Diastolic murmur, Systolic Murmur - GI/Abdominal Exam GI & Abdominal Exam: Normal Bowel Sounds, Soft. absent: Tenderness - Extremities Exam Extremities exam: Positive for: normal capillary refill, normal inspection, pedal pulses present. Negative for: joint swelling, pedal edema, tenderness - Back Exam Back exam: absent: CVA tenderness (L), CVA tenderness (R) Additional comments: lipoma excision scars right upper back, bilateral lower back - Neurological Exam Neurological exam: Alert, Altered, CN II-XII Intact, Motor Sensory Deficit - Psychiatric Exam Psychiatric exam: Normal Affect, Normal Mood - Skin Skin Exam: Dry, Normal Color, Warm Assessment and Plan - Assessment and Plan (Free Text) Assessment: Hyponatremia -On admission patient's Na 111, 6/18 improved to 128 -f/u bmp at 9pm -targeted 24hr correction: <12 to avoid neurological symptoms -possible secondary to HCTZ -Likely also the cause of AMS, CT Head showed mild atrophy -Calculated serum osmo 239.4 -Repeated TSH 0.31, free T4 1.30 -Cortisol level at 7am: 23.7 -Urine sodium, urine osmo -Nephrology consulted, Dr. Shetty help appreciated -Further recommendations per Nephrology -Seizure precaution -NS at 75cc/hr Hypokalemia,resolved -K 3.4 on arrival, repleted Hypochloremia, improving -Cl 94 -Patient is given NS Elevated T. Bili, improved -T bili .7 Low TSH -TSH 0.17, repeat shows 0.31 -normal free T4 H/o HTN -Atenolol 100mg PO HS -Cozaar 100mg AM -discontinue HCTZ due to hyponatremia (patient should Not restart this medication) H/o DM2 -Hgb 6.9 -lipid panel unremarkable -Glipizide 10mg po -RISS moderate ACHS -Hypoglycemic protocol -Start Lisinopril 2.5mg as prevention to proteinuria Prophylactic measures -VT Risk score assessment 1 -Bilateral SCD -Pepcid <Kyra Schneider V - Last Filed: 02/02/18 20:25> Objective - Vital Signs/Intake and Output Vital Signs (last 24 hours): Temp Pulse Resp BP Pulse Ox 98 F 81 16 134/87 97 02/02/18 16:00 02/02/18 18:00 02/02/18 16:00 02/02/18 16:00 02/02/18 16:00 Intake and Output: 02/02/18 02/03/18 18:59 06:59 Intake Total 1400 Output Total 800 Balance 600 - Medications Medications: Current Medications Atenolol (Tenormin) 100 mg PO HS [facility] Last Admin: 02/01/18 21:55 Dose: 100 mg Clonazepam (Klonopin) 0.5 mg PO BID LINDY Stop: 02/04/18 11:46 Last Admin: 02/02/18 19:09 Dose: 0.5 mg Dextrose (Dextrose 50% Inj) 0 ml IVP .STAT PRN; Protocol PRN Reason: Hypoglycemia Protocol Dextrose (Glutose 15) 0 gm PO .ONCE PRN; Protocol PRN Reason: Hypoglycemia Protocol Famotidine (Pepcid) 20 mg PO DAILY [facility] Last Admin: 02/02/18 09:26 Dose: 20 mg Glipizide (Glucotrol) 10 mg PO ACB [facility] Last Admin: 02/02/18 08:07 Dose: 10 mg Glucagon (Glucagen Diagnostic Kit) 0 mg IM .STAT PRN; Protocol PRN Reason: Hypoglycemia Protocol Dextrose (Dextrose 5% In Water 1000 Ml) 1,000 mls @ 0 mls/hr IV .Q0M PRN; Protocol; Per Protocol PRN Reason: Hypoglycemia Protocol Sodium Chloride (Sodium Chloride 0.9%) 1,000 mls @ 75 mls/hr IV .[id number] [facility] Last Admin: 02/02/18 16:18 Dose: 75 mls/hr Insulin Human Regular (Novolin R) 0 unit SC ACHS [facility] PRN Reason: Protocol Last Admin: 02/02/18 16:17 Dose: 2 unit Lisinopril (Zestril) 2.5 mg PO DAILY [facility] Last Admin: 02/02/18 09:26 Dose: 2.5 mg Mirtazapine (Remeron) 15 mg PO HS [facility] Last Admin: 02/01/18 21:55 Dose: 15 mg - Labs Labs: 02/02/18 05:37 02/02/18 15:11 PT 14.1 SECONDS (9.7-12.2) H 01/31/18 10:54 INR 1.3 01/31/18 10:54 APTT 29 SECONDS (21-34) 01/31/18 10:54 Attending/Attestation - Attestation I have personally seen and examined this patient.: Yes I have fully participated in the care of the patient.: Yes I have reviewed all pertinent clinical information, including history, physical exam and plan: Yes Notes (Text): Patient seen, examined and case discussed with day-time resident. Patient seen this morning in the ICU, patient was transferred out as of yesterday. Patient denies headache, he is awake, alert, oriented X3, no acute distress. Patient is eager to leave the hospital. I have explained to him we are awaiting his sodium levels to normalize. I have spoken with nephrology, recommending to continue IV fluids and monitor the sodium level into this evening given element of volume depletion. Also to note, patient has a history of chronic hepatitis B since he was a child , originating when he lived in [place], and where there was common hepatitis B epidemic. Patient reported he normal has his hepatitis B levels monitoring but since recently losing his insurance he has not followed up. He reports he used to go every 3 months. He denies drug use, M2M, IV drug use etc. Assessment/Plan 1) Hypovolumic Hyponatremia Assessment/Plan * Nephrology consulted, Dr. Shetty help appreciated * On admission patient's Na 111 * 6 improved to 128 * f/u bmp at 9pm while on IV fluids * targeted 24hr correction: <12 to avoid neurological symptoms * etiology multifactorial: possible secondary to HCTZ, volume depletion * CT Head showed mild atrophy * Calculated serum osmo 239.4 * Repeated TSH 0.31, free T4 1.30 * Cortisol level at 7am: 23.7 * Seizure precaution * NS at 75cc/hr 2) Hypokalemia Assessment/Plan * monitor and replete 3) Hypochloremia Assessment/Plan * off diuretic * on IV fluids 4) Elevated T. Bilirubin Assessment/Plan * monitor and normalized 5) Low TSH Assessment/Plan * TSH 0.17, repeat shows 0.31; normal free T4 * Recommend repeating thyroid studies given acute stressor 6) History of HTN Assessment/Plan * Atenolol 100mg PO HS * Lisinopril 2.5mg PO daily * discontinue HCTZ due to hyponatremia (patient should Not restart this medication) 7) History of DM2 Assessment/Plan * Hgb 6.9 * lipid panel unremarkable * Glipizide 10mg PO daily * RISS moderate ACHS * Hypoglycemic protocol * Start Lisinopril 2.5mg PO daily as prevention to proteinuria 8) Anxiety Assessment/Plan * Dr. Mott (psych) on board-->help appreciated * Klonopin 0.5mg PO BID X3 days * Remeron 15mg POqHS 9) Prophylactic measures * VT Risk score assessment 1 * Bilateral SCD * Pepcid * Ambulatory Disposition: planning for discharge tomorrow pending sodium and nephrology recommendations
[2018-02-02 21:35] LABS: BLOOD UREA NITROGEN 13 mg/dL (9-20); CALCIUM 8.2 mg/dl (8.6-10.4); GFR AFRICAN-AMERICAN > 60; GFR NON-AFRICAN AMERICAN > 60
[2018-02-03] MEDS: Sodium Chloride 0.9% 1,000 ML IV SCH (05:40)
[2018-02-03 06:31] LABS: BASO # 0.1 K/uL (0.0-0.2); BASO % 1.1 % (0.0-2.0); EOS # 0.3 K/uL (0.0-0.7); EOS % 3.2 % (0.0-4.0); HEMOGLOBIN 12.9 g/dL (12.0-18.0); LYMPH # 1.2 K/uL (1.0-4.3); LYMPH % 15.2 % (20.0-40.0); MEAN CELL VOLUME 91.8 fL (80.0-94.0); MEAN CORPUSCULAR HEMOGLOBIN 32.5 pg (27.0-31.0); MEAN CORPUSCULAR HGB CONC 35.4 g/dL (33.0-37.0); MEAN PLATELET VOLUME 7.1 fL (7.2-11.7); MONO # 0.7 K/uL (0.0-0.8); MONO % 9.4 % (0.0-10.0); NEUT # 5.5 K/uL (1.8-7.0); NEUT % 71.1 % (50.0-75.0); RBC 3.99 Mil/uL (4.40-5.90); RED CELL DISTRIBUTION WIDTH 14.9 % (11.5-14.5); WHITE BLOOD COUNT 7.8 K/uL (4.8-10.8)
[2018-02-03 06:40] LABS: ALB/GLOB RATIO 1.4 (1.0-2.1); ALBUMIN 3.5 g/dL (3.5-5.0); ALT/SGPT 72 U/L (21-72); AST/SGOT 47 U/L (17-59); BLOOD UREA NITROGEN 10 mg/dL (9-20); CALCIUM 8.1 mg/dl (8.6-10.4); GFR AFRICAN-AMERICAN > 60; GFR NON-AFRICAN AMERICAN > 60
[2018-02-03] MEDS: (Novolin R) Insulin Human Regular 100 units/ml vial SC SCH ×3 (08:19→16:20)
--- NOTE | 2018-02-03 10:15 | CP.PCM.PN ---
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 and was being monitored by GI previously, treatment was not felt necessary; Objective - Vital Signs/Intake and Output Vital Signs (last 24 hours): Temp Pulse Resp BP Pulse Ox 98.2 F 70 16 167/98 H 97 02/03/18 08:00 02/03/18 08:00 02/03/18 08:00 02/03/18 08:00 02/03/18 08:00 Intake and Output: 02/03/18 02/03/18 06:59 18:59 Intake Total 1500 435 Output Total 800 375 Balance 700 60 - Medications Medications: Current Medications Atenolol (Tenormin) 100 mg PO HS [facility] Last Admin: 02/02/18 21:18 Dose: 100 mg Clonazepam (Klonopin) 0.5 mg PO BID [facility] Stop: 02/04/18 11:46 Last Admin: 02/03/18 09:51 Dose: 0.5 mg Dextrose (Dextrose 50% Inj) 0 ml IVP .STAT PRN; Protocol PRN Reason: Hypoglycemia Protocol Dextrose (Glutose 15) 0 gm PO .ONCE PRN; Protocol PRN Reason: Hypoglycemia Protocol Famotidine (Pepcid) 20 mg PO DAILY [facility] Last Admin: 02/03/18 09:51 Dose: 20 mg Glipizide (Glucotrol) 10 mg PO ACB [facility] Last Admin: 02/03/18 08:13 Dose: 10 mg Glucagon (Glucagen Diagnostic Kit) 0 mg IM .STAT PRN; Protocol PRN Reason: Hypoglycemia Protocol Dextrose (Dextrose 5% In Water 1000 Ml) 1,000 mls @ 0 mls/hr IV .Q0M PRN; Protocol; Per Protocol PRN Reason: Hypoglycemia Protocol Insulin Human Regular (Novolin R) 0 unit SC [facility] PRN Reason: Protocol Last Admin: 02/03/18 08:19 Dose: Not Given Lisinopril (Zestril) 5 mg PO DAILY [facility] Mirtazapine (Remeron) 15 mg PO [facility] Last Admin: 02/02/18 21:18 Dose: 15 mg - Labs Labs: 02/03/18 06:24 02/03/18 06:14 PT 14.1 SECONDS (9.7-12.2) H 01/31/18 10:54 INR 1.3 01/31/18 10:54 APTT 29 SECONDS (21-34) 01/31/18 10:54 - Constitutional Appears: Non-toxic, No Acute Distress - Eye Exam Eye Exam: absent: Scleral icterus - ENT Exam ENT Exam: Mucous Membranes Moist - Respiratory Exam Respiratory Exam: Clear to Ausculation Bilateral. absent: Respiratory Distress - Cardiovascular Exam Cardiovascular Exam: RRR, +S1, +S2 - GI/Abdominal Exam GI & Abdominal Exam: Soft. absent: Distended, Tenderness - Extremities Exam Additional comments: no leg edema; - Neurological Exam Neurological Exam: Alert, Awake - Psychiatric Exam Psychiatric exam: Normal Mood. absent: Agitated - Skin Skin Exam: Warm. absent: Cyanosis Assessment and Plan (1) Hyponatremia Assessment & Plan: Hyponatremia, improving; multifactorial but repeat Ur Na very low, consistent with decreased renal perfusion, unclear why this wasn't present on previous measurement; -continue IVF w/ NS at 100 cc/hr -continue to hold diuretics; -continue PO fluid restriction (<1500 cc/day); Status: Acute (2) Hypokalemia Assessment & Plan: Likely due to secondary hyperaldosteronism from volume depletion; continue to replenish prn, should resolve with volume repletion as well; Status: Acute (3) HTN (hypertension) Assessment & Plan: BP control flucuating; advised to restart ARB/ELVIS inhibitor slowly; continue atenolol, hold diuretic; if diuretic needed, avoid thiazides; Status: Acute (4) Proteinuria Assessment & Plan: Resolved per repeat UA but mildly elevated microalbuminuria in the setting of DM ; already on ELVIS inhibitor/ARB, continue; Status: Acute (5) Rhabdomyolysis Assessment & Plan: Mild, suggestive of seizure; Status: Resolved
--- NOTE | 2018-02-03 12:12 | CARD ---
APPROVED REPORT EKG Measurement Heart [id number] <Conclusion> Sinus rhythm with 1st degree AV block with occasional premature ventricular complexes Minimal voltage criteria for LVH, may be normal variant Cannot rule out Anterior infarct, age undetermined Prolonged QT Abnormal ECG
[2018-02-03 12:26] VITALS: BP 145/95; PULSE 71; RESP 17
[2018-02-03] MEDS ORDERED: Pneumococcal 23-Valent Vaccine SC ONE (12:49)
[2018-02-03 16:20] VITALS: TEMP 98
--- NOTE | 2018-02-03 18:02 | CP.PCM.DIS ---
<Julisa Ramirez - Last Filed: 02/03/18 17:53> Provider - Provider Date of Admission: 01/31/18 13:37 Attending physician: Darrell Barber MD Consults: ICU: Sunil Nephro: Sena Psych: Ozden Time Spent in preparation of Discharge (in minutes): 40 Diagnosis - Discharge Diagnosis (1) Hyponatremia Status: Resolved (2) Diabetes mellitus Status: Chronic (3) Hepatitis B Status: Chronic (4) Depression Status: Chronic (5) HTN (hypertension) Status: Chronic Hospital Course - Lab Results Lab Results: Micro Results 01/31/18 15:40 Naris MRSA Culture (Admit) - Final MRSA NOT DETECTED Most Recent Lab Values WBC 7.8 K/uL (4.8-10.8) 02/03/18 06:24 RBC 3.99 Mil/uL (4.40-5.90) L 02/03/18 06:24 Hgb 12.9 g/dL (12.0-18.0) 02/03/18 06:24 Hct 36.6 % (35.0-51.0) 02/03/18 06:24 MCV 91.8 fL (80.0-94.0) 02/03/18 06:24 MCH 32.5 pg (27.0-31.0) H 02/03/18 06:24 MCHC 35.4 g/dL (33.0-37.0) 02/03/18 06:24 RDW 14.9 % (11.5-14.5) H 02/03/18 06:24 Plt Count 191 K/uL (130-400) 02/03/18 06:24 MPV 7.1 fL (7.2-11.7) L 02/03/18 06:24 Neut % (Auto) 71.1 % (50.0-75.0) 02/03/18 06:24 Lymph % (Auto) 15.2 % (20.0-40.0) L 02/03/18 06:24 [place] % (Auto) 9.4 % (0.0-10.0) 02/03/18 06:24 Eos % (Auto) 3.2 % (0.0-4.0) 02/03/18 06:24 Baso % (Auto) 1.1 % (0.0-2.0) 02/03/18 06:24 Neut # (Auto) 5.5 K/uL (1.8-7.0) 02/03/18 06:24 Lymph # (Auto) 1.2 K/uL (1.0-4.3) 02/03/18 06:24 [place] # (Auto) 0.7 K/uL (0.0-0.8) 02/03/18 06:24 Eos # (Auto) 0.3 K/uL (0.0-0.7) 02/03/18 06:24 Baso # (Auto) 0.1 K/uL (0.0-0.2) 02/03/18 06:24 Neutrophils % (Manual) 90 % (50-75) H 01/31/18 10:54 Lymphocytes % (Manual) 4 % (20-40) L 01/31/18 10:54 Monocytes % (Manual) 6 % (0-10) 01/31/18 10:54 Platelet Estimate Normal (NORMAL) 01/31/18 10:54 RBC Morphology Normal 01/31/18 10:54 PT 14.1 SECONDS (9.7-12.2) H 01/31/18 10:54 INR 1.3 01/31/18 10:54 APTT 29 SECONDS (21-34) 01/31/18 10:54 pO2 51 mm/Hg (30-55) 01/31/18 11:11 VBG pH 7.18 (7.32-7.43) L* 01/31/18 11:11 VBG pCO2 58 mmHg (40-60) 01/31/18 11:11 VBG HCO3 18.5 mmol/L 01/31/18 11:11 VBG Total CO2 23.4 mmol/L (22-28) 01/31/18 11:11 VBG O2 Sat (Calc) 82.8 % (40-65) H 01/31/18 11:11 VBG Base Excess -7.4 mmol/L (0.0-2.0) L 01/31/18 11:11 VBG Potassium > 20.0 mmol/L (3.6-5.2) H* 01/31/18 11:11 Sodium 106.0 mmol/l (132-148) L* 01/31/18 11:11 Chloride 74.0 mmol/L (98-107) L 01/31/18 11:11 Glucose 187 mg/dl (75-110) H 01/31/18 11:11 Lactate 2.4 mmol/L (0.7-2.1) H 01/31/18 11:11 Crit Value Called To Dr pepe 01/31/18 11:11 Crit Value Called By Jose stone crt 01/31/18 11:11 Crit Value Read Back Y 01/31/18 11:11 Blood Gas Notified Time 1117 01/31/18 11:11 Sodium 131 mmol/L (132-148) L 02/03/18 06:14 Potassium 4.0 mmol/L (3.6-5.2) 02/03/18 06:14 Chloride 98 mmol/L (98-107) 02/03/18 06:14 Carbon Dioxide 26 mmol/L (22-30) 02/03/18 06:14 Anion Gap 11 (10-20) 02/03/18 06:14 BUN 10 mg/dL (9-20) 02/03/18 06:14 Creatinine 1.0 mg/dL (0.8-1.5) 02/03/18 06:14 Est GFR ( Amer) > 60 02/03/18 06:14 Est GFR (Non-Af Amer) > 60 02/03/18 06:14 POC Glucose (mg/dL) 70 mg/dL (65-110) 02/03/18 16:13 Random Glucose 107 mg/dL (75-110) 02/03/18 06:14 Hemoglobin A1c 6.9 % (4.2-6.5) H 02/01/18 06:15 Calcium 8.1 mg/dl (8.6-10.4) L 02/03/18 06:14 Phosphorus 3.2 mg/dL (2.5-4.5) 02/02/18 05:38 Magnesium 2.3 mg/dL (1.6-2.3) 02/02/18 05:38 Total Bilirubin 0.8 mg/dL (0.2-1.3) 02/03/18 06:14 AST 47 U/L (17-59) 02/03/18 06:14 ALT 72 U/L (21-72) 02/03/18 06:14 Alkaline Phosphatase 41 U/L (38-126) 02/03/18 06:14 Ammonia < 9 umol/L (9-33) L 01/31/18 13:01 Total Creatine Kinase 191 U/L (55-170) H 02/02/18 10:49 CK-MB (Mass) 5.31 ng/mL (0.0-3.38) H 01/31/18 10:54 Troponin I < 0.0120 ng/mL (0.00-0.120) 01/31/18 10:54 NT-Pro-B Natriuret Pep 176 pg/mL (0-900) 01/31/18 10:54 Total Protein 6.0 g/dL (6.3-8.3) L 02/03/18 06:14 Albumin 3.5 g/dL (3.5-5.0) 02/03/18 06:14 Globulin 2.5 gm/dL (2.2-3.9) 02/03/18 06:14 Albumin/Globulin Ratio 1.4 (1.0-2.1) 02/03/18 06:14 Triglycerides 101 mg/dL (0-149) 02/01/18 06:15 Cholesterol 147 mg/dL (0-199) 02/01/18 06:15 LDL Cholesterol Direct 81 mg/dL (0-129) 02/01/18 06:15 HDL Cholesterol 44 mg/dL (30-70) 02/01/18 06:15 Free T4 1.30 ng/dL (0.78-2.19) 01/31/18 17:51 TSH 3rd Generation 0.31 mIU/L (0.46-4.68) L 01/31/18 17:51 Cortisol AM Sample 23.7 ug/dL (4.46-22.7) H 02/01/18 06:15 Venous Blood Potassium > 20.0 mmol/L (3.6-5.2) H* 01/31/18 11:11 Urine Color Yellow (YELLOW) 02/01/18 10:55 Urine Clarity Clear (Clear) 02/01/18 10:55 Urine pH 6.0 (5.0-8.0) 02/01/18 10:55 Ur Specific [place] 1.010 (1.003-1.030) 02/01/18 10:55 Urine Protein Negative mg/dL (NEGATIVE) 02/01/18 10:55 Urine Glucose (UA) Normal mg/dL (Normal) 02/01/18 10:55 Urine Ketones Negative mg/dL (NEGATIVE) 02/01/18 10:55 Urine Blood Negative (NEGATIVE) 02/01/18 10:55 Urine Nitrate Negative (NEGATIVE) 02/01/18 10:55 Urine Bilirubin Negative (NEGATIVE) 02/01/18 10:55 Urine Urobilinogen 2.0 mg/dL (0.2-1.0) 02/01/18 10:55 Ur Leukocyte Esterase Neg Bryanna/uL (Negative) 02/01/18 10:55 Urine WBC (Auto) < 1 /hpf (0-5) 02/01/18 10:55 Ur Squamous Epith Cells < 1 /hpf (0-5) 02/01/18 10:55 Urine Osmolality 323 mosm/kg (300-1000) 02/02/18 21:24 Ur Random Creatinine 119 mg/dL (20-370) 02/01/18 10:55 U Random Total Protein 172 mg/g creat (22-128) H 02/01/18 10:55 Ur Random Sodium 16 mmol/L 02/02/18 21:24 Ur Random Potassium 10.2 mmol/L 02/02/18 21:24 Urine Total Volume 5.8 mg/dL 02/01/18 10:55 Microalb/Creat Ratio 48 (<30) H 02/01/18 10:55 Urine Chloride 42 mmol/L (32-290) 01/31/18 11:43 Salicylates < 1.0 mg/dL 1 01/31/18 11:30 Urine Opiates Screen Negative (NEGATIVE) 01/31/18 11:01 Urine Methadone Screen Negative (NEGATIVE) 01/31/18 11:01 Acetaminophen < 10.0 ug/mL (10.0-30.0) L 01/31/18 11:30 Ur Barbiturates Screen Negative (NEGATIVE) 01/31/18 11:01 Ur Phencyclidine Scrn Negative (NEGATIVE) 01/31/18 11:01 Ur Amphetamines Screen Negative (NEGATIVE) 01/31/18 11:01 U Benzodiazepines Scrn Negative (NEGATIVE) 01/31/18 11:01 U Oth Cocaine Metabols Negative (NEGATIVE) 01/31/18 11:01 U Cannabinoids Screen Negative (NEGATIVE) 01/31/18 11:01 Alcohol, Quantitative < 10 mg/dl (0-10) 01/31/18 10:54 Complement C3 100.0 mg/dL (88.0-165.0) 02/01/18 10:57 Complement C4 34.8 mg/dL (14.0-44.0) 02/01/18 10:57 RPR Nonreactive (NONREACTIVE) 02/01/18 11:21 Hep Bs Antigen Reactive (NEGATIVE) 02/01/18 11:06 Hep Bs Ag Neutralizatn Confirmed positive H 02/01/18 11:06 Hep Bs Antibody Negative (NEGATIVE) 02/02/18 10:49 Hepatitis C Antibody Non reactive (Non Reactive) 02/01/18 11:21 Hep C Ab Signal/Cutoff 0.01 Ratio (<1.0) 02/01/18 11:21 HIV 1&2 Antibody Screen Negative (NEGATIVE) 02/01/18 11:21 - Hospital Course Hospital Course: "HPI: 57 year old male with past medical history of hypertension, and diabetes was brought in by ambulance because he was found confused at work. Patient is and confused at the time of interview. Patient states woke up this morning feeling fine and went on about his day until he got to where he started feeling "uncomfortable" prior loss of consciousness. He insisted that does not do drugs and someone must have poisoned him. Currently he complains of being thirsty and urge to urinate. He denies prior history of the same. He denies taking any medications this morning and his last alcohol intake was last night. He had 5 cans of beers. Patient further denies having fever, chills, headache, blurred vision, shortness of breath, chest pain, nausea , vomiting, diarrhea, or abdominal pain. Patient became agitated when asked about his family, relatives, or currently living situation." Patient was admitted on 01/31/18 due to Na [address] Shetty and ICU daycare director were consulted. Patient was admitted to ICU. Hyponatremia was possibly secondary to HCTZ use. Thaizide was immediately stopped. He was given Normal Saline to replete Na with a correction of < 12 over 24 hours to avoid neurological symptoms. Patient's AMS was likely secondary to Hyponatremia. Patient had CT without contrast of head 01/31/18 which showed mild atrophy. Seizure precautions were taken. Nephrology was consulted. BMP was repeated and as of 02/03/18 Na was 131. Patient also was found to be hypokalemic which was replenished as needed. Patient found to have proteinuria which resolved per repeat UA. Patient to continue on ACEI. Patient has PMHx of HTN. HCTZ was stopped permanently due to potentially causing the hyponatremia. Atenolol 100mg PO HS and Lisinopril 2.5mg PO daily were given to control blood pressure and should be continued at home. Patient has PMHx of DM2. He was prescribed Glipizide 10mg PO daily and a hypoglycemic protocol was initiated. Patient also found to be Hep B positive. Patient has had this for many years ( since childhood) and has been seeing a GI doctor as an outpatient. Treatment was not felt necessary. Patient will continue to follow up with GI. Upon discharge patient had no complaints. Patient was instructed to follow up outpatient in the clinic next week to check sodium level. This is a summary of the patient's hospital course, please see chart for details. Discharge Exam - Additional Findings Additional findings: - Constitutional Appears: Non-toxic, No Acute Distress - Eye Exam Eye Exam: absent: Scleral icterus - ENT Exam ENT Exam: Mucous Membranes Moist - Respiratory Exam Respiratory Exam: Clear to Ausculation Bilateral. absent: Respiratory Distress - Cardiovascular Exam Cardiovascular Exam: RRR, +S1, +S2 - GI/Abdominal Exam GI & Abdominal Exam: Soft. absent: Distended, Tenderness - Extremities Exam Additional comments: no leg edema; - Neurological Exam Neurological Exam: Alert, Awake - Psychiatric Exam Psychiatric exam: Normal Mood. absent: Agitated - Skin Skin Exam: Warm. absent: Cyanosis Discharge Plan - Discharge Medications Prescriptions: RX: Atenolol [Tenormin] 100 mg PO HS #30 tab RX: GlipiZIDE [Glucotrol] 10 mg PO ACB #90 tab RX: Lisinopril [Zestril] 5 mg PO DAILY #30 tab RX: Mirtazapine [Remeron] 15 mg PO HS #30 tab - Follow Up Plan Condition: GOOD Disposition: HOME/ ROUTINE Additional Instructions: Patient stable for discharge as per Dr. Schneider and Dr. Shetty. Patient should take Atenolol 100mg by mouth at night and Lisinopril 5mg by mouth daily for high blood pressure. Patient should take Glucotrol 10mg by mouth before meals (three times per day) for blood sugar control. Patient should take Remeron 15mg at night for depression. Patient should make an appointment with the [facility] ([phone]) or [facility] ([phone]) within one week to check his sodium. Patient will also need to see a GI doc to measure his Hepatitis levels. Patient will also need to follow up with the [facility] for counseling/ psychiatry within two weeks to help manage patient's depression. Patient to return to ED if he becomes confused or any other symptoms return. Patient explained instructions who understands and agrees. Referrals: [facility] [Outside] [facility] [Outside] <Kyra Schneider V - Last Filed: 02/03/18 20:48> Provider - Provider Date of Admission: 01/31/18 13:37 Attending physician: Darrell Barber MD Hospital Course - Lab Results Lab Results: Micro Results 01/31/18 15:40 Naris MRSA Culture (Admit) - Final MRSA NOT DETECTED Most Recent Lab Values WBC 7.8 K/uL (4.8-10.8) 02/03/18 06:24 RBC 3.99 Mil/uL (4.40-5.90) L 02/03/18 06:24 Hgb 12.9 g/dL (12.0-18.0) 02/03/18 06:24 Hct 36.6 % (35.0-51.0) 02/03/18 06:24 MCV 91.8 fL (80.0-94.0) 02/03/18 06:24 MCH 32.5 pg (27.0-31.0) H 02/03/18 06:24 MCHC 35.4 g/dL (33.0-37.0) 02/03/18 06:24 RDW 14.9 % (11.5-14.5) H 02/03/18 06:24 Plt Count 191 K/uL (130-400) 02/03/18 06:24 MPV 7.1 fL (7.2-11.7) L 02/03/18 06:24 Neut % (Auto) 71.1 % (50.0-75.0) 02/03/18 06:24 Lymph % (Auto) 15.2 % (20.0-40.0) L 02/03/18 06:24 [place] % (Auto) 9.4 % (0.0-10.0) 02/03/18 06:24 Eos % (Auto) 3.2 % (0.0-4.0) 02/03/18 06:24 Baso % (Auto) 1.1 % (0.0-2.0) 02/03/18 06:24 Neut # (Auto) 5.5 K/uL (1.8-7.0) 02/03/18 06:24 Lymph # (Auto) 1.2 K/uL (1.0-4.3) 02/03/18 06:24 [place] # (Auto) 0.7 K/uL (0.0-0.8) 02/03/18 06:24 Eos # (Auto) 0.3 K/uL (0.0-0.7) 02/03/18 06:24 Baso # (Auto) 0.1 K/uL (0.0-0.2) 02/03/18 06:24 Neutrophils % (Manual) 90 % (50-75) H 01/31/18 10:54 Lymphocytes % (Manual) 4 % (20-40) L 01/31/18 10:54 Monocytes % (Manual) 6 % (0-10) 01/31/18 10:54 Platelet Estimate Normal (NORMAL) 01/31/18 10:54 RBC Morphology Normal 01/31/18 10:54 PT 14.1 SECONDS (9.7-12.2) H 01/31/18 10:54 INR 1.3 01/31/18 10:54 APTT 29 SECONDS (21-34) 01/31/18 10:54 pO2 51 mm/Hg (30-55) 01/31/18 11:11 VBG pH 7.18 (7.32-7.43) L* 01/31/18 11:11 VBG pCO2 58 mmHg (40-60) 01/31/18 11:11 VBG HCO3 18.5 mmol/L 01/31/18 11:11 VBG Total CO2 23.4 mmol/L (22-28) 01/31/18 11:11 VBG O2 Sat (Calc) 82.8 % (40-65) H 01/31/18 11:11 VBG Base Excess -7.4 mmol/L (0.0-2.0) L 01/31/18 11:11 VBG Potassium > 20.0 mmol/L (3.6-5.2) H* 01/31/18 11:11 Sodium 106.0 mmol/l (132-148) L* 01/31/18 11:11 Chloride 74.0 mmol/L (98-107) L 01/31/18 11:11 Glucose 187 mg/dl (75-110) H 01/31/18 11:11 Lactate 2.4 mmol/L (0.7-2.1) H 01/31/18 11:11 Crit Value Called To Dr pepe 01/31/18 11:11 Crit Value Called By Jose stone line service technician 01/31/18 11:11 Crit Value Read Back Y 01/31/18 11:11 Blood Gas Notified Time 1117 01/31/18 11:11 Sodium 131 mmol/L (132-148) L 02/03/18 06:14 Potassium 4.0 mmol/L (3.6-5.2) 02/03/18 06:14 Chloride 98 mmol/L (98-107) 02/03/18 06:14 Carbon Dioxide 26 mmol/L (22-30) 02/03/18 06:14 Anion Gap 11 (10-20) 02/03/18 06:14 BUN 10 mg/dL (9-20) 02/03/18 06:14 Creatinine 1.0 mg/dL (0.8-1.5) 02/03/18 06:14 Est GFR ( Amer) > 60 02/03/18 06:14 Est GFR (Non-Af Amer) > 60 02/03/18 06:14 POC Glucose (mg/dL) 70 mg/dL (65-110) 02/03/18 16:13 Random Glucose 107 mg/dL (75-110) 02/03/18 06:14 Hemoglobin A1c 6.9 % (4.2-6.5) H 02/01/18 06:15 Calcium 8.1 mg/dl (8.6-10.4) L 02/03/18 06:14 Phosphorus 3.2 mg/dL (2.5-4.5) 02/02/18 05:38 Magnesium 2.3 mg/dL (1.6-2.3) 02/02/18 05:38 Total Bilirubin 0.8 mg/dL (0.2-1.3) 02/03/18 06:14 AST 47 U/L (17-59) 02/03/18 06:14 ALT 72 U/L (21-72) 02/03/18 06:14 Alkaline Phosphatase 41 U/L (38-126) 02/03/18 06:14 Ammonia < 9 umol/L (9-33) L 01/31/18 13:01 Total Creatine Kinase 191 U/L (55-170) H 02/02/18 10:49 CK-MB (Mass) 5.31 ng/mL (0.0-3.38) H 01/31/18 10:54 Troponin I < 0.0120 ng/mL (0.00-0.120) 01/31/18 10:54 NT-Pro-B Natriuret Pep 176 pg/mL (0-900) 01/31/18 10:54 Total Protein 6.0 g/dL (6.3-8.3) L 02/03/18 06:14 Albumin 3.5 g/dL (3.5-5.0) 02/03/18 06:14 Globulin 2.5 gm/dL (2.2-3.9) 02/03/18 06:14 Albumin/Globulin Ratio 1.4 (1.0-2.1) 02/03/18 06:14 Triglycerides 101 mg/dL (0-149) 02/01/18 06:15 Cholesterol 147 mg/dL (0-199) 02/01/18 06:15 LDL Cholesterol Direct 81 mg/dL (0-129) 02/01/18 06:15 HDL Cholesterol 44 mg/dL (30-70) 02/01/18 06:15 Free T4 1.30 ng/dL (0.78-2.19) 01/31/18 17:51 TSH 3rd Generation 0.31 mIU/L (0.46-4.68) L 01/31/18 17:51 Cortisol AM Sample 23.7 ug/dL (4.46-22.7) H 02/01/18 06:15 Venous Blood Potassium > 20.0 mmol/L (3.6-5.2) H* 01/31/18 11:11 Urine Color Yellow (YELLOW) 02/01/18 10:55 Urine Clarity Clear (Clear) 02/01/18 10:55 Urine pH 6.0 (5.0-8.0) 02/01/18 10:55 Ur Specific [place] 1.010 (1.003-1.030) 02/01/18 10:55 Urine Protein Negative mg/dL (NEGATIVE) 02/01/18 10:55 Urine Glucose (UA) Normal mg/dL (Normal) 02/01/18 10:55 Urine Ketones Negative mg/dL (NEGATIVE) 02/01/18 10:55 Urine Blood Negative (NEGATIVE) 02/01/18 10:55 Urine Nitrate Negative (NEGATIVE) 02/01/18 10:55 Urine Bilirubin Negative (NEGATIVE) 02/01/18 10:55 Urine Urobilinogen 2.0 mg/dL (0.2-1.0) 02/01/18 10:55 Ur Leukocyte Esterase Neg Bryanna/uL (Negative) 02/01/18 10:55 Urine WBC (Auto) < 1 /hpf (0-5) 02/01/18 10:55 Ur Squamous Epith Cells < 1 /hpf (0-5) 02/01/18 10:55 Urine Osmolality 323 mosm/kg (300-1000) 02/02/18 21:24 Ur Random Creatinine 119 mg/dL (20-370) 02/01/18 10:55 U Random Total Protein 172 mg/g creat (22-128) H 02/01/18 10:55 Ur Random Sodium 16 mmol/L 02/02/18 21:24 Ur Random Potassium 10.2 mmol/L 02/02/18 21:24 Urine Total Volume 5.8 mg/dL 02/01/18 10:55 Microalb/Creat Ratio 48 (<30) H 02/01/18 10:55 Urine Chloride 42 mmol/L (32-290) 01/31/18 11:43 Salicylates < 1.0 mg/dL 1 01/31/18 11:30 Urine Opiates Screen Negative (NEGATIVE) 01/31/18 11:01 Urine Methadone Screen Negative (NEGATIVE) 01/31/18 11:01 Acetaminophen < 10.0 ug/mL (10.0-30.0) L 01/31/18 11:30 Ur Barbiturates Screen Negative (NEGATIVE) 01/31/18 11:01 Ur Phencyclidine Scrn Negative (NEGATIVE) 01/31/18 11:01 Ur Amphetamines Screen Negative (NEGATIVE) 01/31/18 11:01 U Benzodiazepines Scrn Negative (NEGATIVE) 01/31/18 11:01 U Oth Cocaine Metabols Negative (NEGATIVE) 01/31/18 11:01 U Cannabinoids Screen Negative (NEGATIVE) 01/31/18 11:01 Alcohol, Quantitative < 10 mg/dl (0-10) 01/31/18 10:54 Complement C3 100.0 mg/dL (88.0-165.0) 02/01/18 10:57 Complement C4 34.8 mg/dL (14.0-44.0) 02/01/18 10:57 RPR Nonreactive (NONREACTIVE) 02/01/18 11:21 Hep Bs Antigen Reactive (NEGATIVE) 02/01/18 11:06 Hep Bs Ag Neutralizatn Confirmed positive H 02/01/18 11:06 Hep Bs Antibody Negative (NEGATIVE) 02/02/18 10:49 Hepatitis C Antibody Non reactive (Non Reactive) 02/01/18 11:21 Hep C Ab Signal/Cutoff 0.01 Ratio (<1.0) 02/01/18 11:21 HIV 1&2 Antibody Screen Negative (NEGATIVE) 02/01/18 11:21 Attending/Attestation - Attestation I have personally seen and examined this patient.: Yes I have fully participated in the care of the patient.: Yes I have reviewed all pertinent clinical information, including history, physical exam and plan: Yes Notes (Text): Patient denies headache, he is awake, alert, oriented X3, no acute distress. Patient denies acute complaints. Patient's sodium improved to 131 this morning. I have discussed the case nephrology, from his standpoint, patient stable for discharge; recommended to f/ u in one week for repeat sodium level. Patient understands to not resume his diuretic. Patient's simon inhibitor increased to Lisinopril 5mg once a day in light of uncontrolled blood pressure and to continue atenolol 100mg once a day. Patient recommended by psych to continue Remeron and establish care at the [facility]. Patient recommend to establish care at the [facility] at either [place] or [place] locations; phone numbers of both locations were provided to the patient on discharge. I have indicated the importance of following the sodium level; given that low sodium since as the one that required him to be in the icu during hospitalization can precipitate seizures or coma. Once he is established at the clinic, he will need to obtain referral for GI to monitor his known history of chronic hepatitis B and referral to psych or the [facility]. Patient understands he needs to f/u with the Medicaid or the see if he is appropriate for insurance through the [facility] since his insurance recently . This is a summary of patient's hospitalization. Please refer to EMR for further details of care. Month supply of: 1) aspirin 81mg PO daily 2) remeron 15mg POqHS 3) lisinopril 5mg PO daily 4) Atenolol 100mg PO daily provided upon discharge. Discharge Diagnoses: 1) Hypovolumic Hyponatremia-->Stable Assessment/Plan * Nephrology consulted, Dr. Shetty help appreciated * On admission patient's Na 111 * etiology multifactorial: possible secondary to HCTZ, volume depletion * Improved to 131 * CT Head showed mild atrophy * Calculated serum osmo 239.4 * Repeated TSH 0.31, free T4 1.30 * Cortisol level at 7am: 23.7 * Seizure precaution * d/c fluids * no diuretic on discharge * f/u BMP look at sodium level in 1 week 2) Hypokalemia Assessment/Plan * normalized 3) Hypochloremia Assessment/Plan * off diuretic * on IV fluids 4) Elevated T. Bilirubin Assessment/Plan * monitor and normalized 5) Low TSH Assessment/Plan * TSH 0.17, repeat shows 0.31; normal free T4 * Recommend repeating thyroid studies given acute stressor (hospitalization) when he follows-up in the clinic 6) History of HTN Assessment/Plan * Atenolol 100mg PO HS * increased to Lisinopril 5mg PO daily * discontinue HCTZ due to hyponatremia (patient should Not restart this medication on discharge) * Patient provided scripts for both medications upon discharge. 7) History of DM2 Assessment/Plan * Hgb 6.9 * lipid panel unremarkable * Glipizide 10mg PO daily * RISS moderate ACHS * Hypoglycemic protocol * Start Lisinopril 2.5mg PO daily as prevention to proteinuria-->increased to 5mg PO daily prior to discharge * Patient will need to f/u in the clinic for further diabetic management and education including referrals for yearly eye and foot exams and early childhood special educator. 8) Anxiety Assessment/Plan * Dr. Mott (psych) on board-->help appreciated * Klonopin 0.5mg PO BID X3 days * Remeron 15mg POqHS on discharge * Per psych stable for discharge 9) Chronic Hepatitis B Assessment/Plan * patient w known hx of hepatitis B * Used to have GI prior to losing insurance * recommended to f/u in the clinic to obtain GI referral to monitor hepatitis B
--- NOTE | 2018-02-03 19:22 | CP.PCM.PN ---
Objective - Vital Signs/Intake and Output Vital Signs (last 24 hours): Temp Pulse Resp BP Pulse Ox 98.0 F 71 17 145/95 H 97 02/03/18 16:00 02/03/18 12:00 02/03/18 12:00 02/03/18 12:00 02/03/18 08:00 Intake and Output: 02/03/18 02/04/18 18:59 06:59 Intake Total 435 Output Total 375 Balance 60 - Labs Labs: 02/03/18 06:24 02/03/18 06:14 PT 14.1 SECONDS (9.7-12.2) H 01/31/18 10:54 INR 1.3 01/31/18 10:54 APTT 29 SECONDS (21-34) 01/31/18 10:54 Assessment and Plan (1) Hyponatremia Status: Resolved (2) Hypokalemia Status: Acute (3) HTN (hypertension) Status: Chronic (4) Proteinuria Status: Acute (5) Rhabdomyolysis Status: Resolved
[2018-02-04 12:44] VITALS: O2SAT 99
== END 2018-02-03 16:50 | disposition home or self-care (01) | DRG 641 ==
LOC: C.ER 10:30 → C.9E 13:37 → C.9I 13:53
PROVIDERS: ADMIT Family Medicine; ATTEND Family Medicine
DX: E87.1 Hypo-osmolality and hyponatremia (principal); E87.6 Hypokalemia; M62.82 Rhabdomyolysis; R41.82 Altered mental status, unspecified; F32.2 Major depressive disorder, single episode, severe without psychotic features; B18.1 Chronic viral hepatitis B without delta-agent; I10 Essential (primary) hypertension; E87.8 Other disorders of electrolyte and fluid balance, not elsewhere classified; F43.22 Adjustment disorder with anxiety; E11.9 Type 2 diabetes mellitus without complications; E78.5 Hyperlipidemia, unspecified; Z79.82 Long term (current) use of aspirin; Z79.899 Other long term (current) drug therapy; Z79.84 Long term (current) use of oral hypoglycemic drugs